=== PATIENT | female | born 1965 | race Caucasian/White ===

== ENCOUNTER 2016-12-19 03:30 | Inpatient (IN) ==
[2016-12-19] MEDS ORDERED: 0.9 % Sodium Chloride 1,000 ML IVC ONE (03:54)
--- NOTE | 2016-12-19 04:25 | Emergency Department Note ---
Disposition Clinical Impression: Ischemic leg Disposition: Admitted As Inpatient Condition: Serious Referrals: Katlyn Spears, COMMERCIAL CONSTRUCTION ESTIMATOR [Primary Care Provider] - Forms: Work/School Release, ED Satisfaction Letter Extremity Problem HPI - General Chief complaint: ED General Medical Stated complaint: "numb from the waist down" Time Seen by Provider: 12/19/16 03:38 Source: patient Limitations: no limitations Nursing Notes Reviewed: Yes Vital Signs Reviewed: Yes - History of Present Illness HPI Narrative: 51-year-old female with a history of insulin-dependent diabetes, peripheral vascular disease status post aortofemoral bypass, previous ischemic colitis, recent exploratory laparotomy at [facility] presents to the emergency department with the chief complaint of lower extremity numbness and weakness. She reports waking up tonight and having numbness from her belly button down. Her legs felt really weak and she could barely stand. She has had an issue like this in the past and she reports needing surgery for arterial bypass at that time. About a month ago she came to the ER with abdominal pain and was diagnosed with ischemic colitis. At that time she was profoundly hypotensive, septic, requiring pressors. She went to [facility] and had exploratory laparotomy but they could not find the source. It does not sound like she had any sort of resection. She is on Xarelto. She is currently being treated for pneumonia which she was diagnosed with a few days ago. Denies any abdominal pain today. Denies any nausea or vomiting. Denies any fevers or chills. Denies any low back pain. Denies any pain in the legs only numbness. Numbness is throughout the legs and not localized to the saddle area. She had a normal urine output just prior to arrival. Pain Scale: 0 - Related Data Home Medications Medication Instructions Recorded Confirmed Atorvastatin [Lipitor] 40 mg PO HS 11/14/16 12/19/16 Cilostazol [Pletal] 100 mg PO BID 11/14/16 12/19/16 Cyanocobalamin (Vitamin B-12) 2,000 mcg PO DAILY 11/14/16 12/19/16 [Vitamin B-12] Gabapentin [Neurontin] 600 mg PO TID 11/14/16 12/19/16 Insulin DETEMIR [Levemir] 50 unit SQ BID 11/14/16 12/19/16 Liraglutide [Victoza 2-Davy] 1.2 mg SQ DAILY 11/14/16 12/19/16 Lisinopril/Hydrochlorothiazide 1 each PO DAILY 11/14/16 12/19/16 [Zestoretic 20-25 mg Tablet] [place]-3/Dha/Epa/Fish Oil [Fish Oil 1 each PO DAILY 11/14/16 12/19/16 1,000 mg Softgel] Pantoprazole Sodium [Protonix] 20 mg PO DAILY 11/14/16 12/19/16 Rivaroxaban [Xarelto] 10 mg PO DAILY 11/14/16 12/19/16 Tramadol HCl [Ultram] 50 mg PO QID 11/14/16 12/19/16 Docusate Sodium [Dok] 100 mg PO BID 12/19/16 12/19/16 Promethazine [Phenergan] 25 mg PO Q6HR 12/19/16 12/19/16 Allergies Allergy/AdvReac Type Severity Reaction Status Date / Time acetaminophen [From Percocet] Allergy Anaphylaxis Verified 12/19/16 07:10 Oxycodone [From Percocet] Allergy Anaphylaxis Verified 12/19/16 07:10 All systems ED: reviewed and negative except as stated. Constitutional: Denies: fever, chills Cardiovascular: Denies: chest pain Respiratory: Denies: cough, dyspnea Gastrointestinal: Denies: abdominal pain, nausea, vomiting, diarrhea Musculoskeletal: Denies: back pain Neurological: Reports: weakness, numbness. Denies: headache Past Medical History - Past Medical History Medical history: Reports: diabetes, hyperlipidemia, hypertension, renal disease , other Psychiatric history: Reports: no psych history - Social History Smoking Status: Current every day smoker Smokeless Tobacco Status: No Alcohol use: Reports: none Drug use: Reports: none Physical Exam General: Patient is resting comfortably in bed in no distress, she is talkative and appropriate Cardiovascular: Regular rate and rhythm. S1, S2. No murmurs, rubs or gallops. Respiratory: Breath sounds clear bilaterally. No wheezing, rales or rhonchi. No resp distress Abdomen: Abdomen is soft without any guarding, rebound or rigidity. She has a large laparotomy scar that is well healing without signs of infection. The abdomen is slightly distended but nontender throughout. No palpable organomegaly. Normal bowel sounds. Eyes: No scleral icterus, conjunctiva clear HENT: No oral mucosal lesions. Moist mucous membranes Neuro: Diminished sensation in the lower extremities both laterally and medial. It does not localize to the saddle area. She is able to lift both legs off the bed but they drifted to the ground. Vascular: I cannot manually palpate pulses in the DP, PT bilaterally. Her feet are symmetrically cold but not purple and mottled. Musculoskeletal: With palpation of the musculature in the lower extremities she has no pain elicited. Muscles are soft. Skin: No lesions. No diaphoresis. Normal turgor. Normal color Psych: Appropriate - General Limitations: no limitations General appearance: alert, in no apparent distress Course Course Narrative: Presented to the emergency department with a chief complaint of leg weakness and numbness. I could not palpate pulses on initial exam and the limbs were cold but not discolored or mottled. She has a known history of aortobifemoral graft in 2012. We immediately ordered an ALVIN. ALVIN showed a significantly diminished index at 0.24 on the right and 0.20 on the left. She had an ALVIN in April 2016 which showed an index of 1.09 on the right and 1.12 on the left. I immediately paged the vascular surgeon She was recently in the hospital with ischemic versus inflammatory colitis and at that time she was septic, hypotensive and on pressors. She was transferred to [facility] where she had an exploratory laparotomy. Patient denies any bowel resection at that time and reports that with fluid hydration her circulation improved. When looking at her old records from most recent creatinine was 3.8 and I doubted patient would be able to tolerate IV contrast so a CT scan of her abdomen without contrast was initially performed. This showed resolution of the inflammatory changes back in October. It showed some flattening of the graft to the right lower extremity compared to prior. Her labs did return and her renal function had improved drastically with a creatinine of 1.16 and a GFR of 50. After speaking with the vascular surgeon we will aggressively hydrate the patient and get an emergent CT aortogram with runoff. It is likely the patient will go to the operating room for endovascular intervention. Heparinization recommended by vascular surgery. - Reevaluation(s) Reevaluation #1: I spoke with the on-call vascular surgeon Dr. Kauffman who recommends emergent aortogram with runoff and he is coming into the hospital as we speak to evaluate the patient. He recommends heparinization and understands she's on Xarelto. Time: 06:16 Reevaluation #2: Vascular surgeon is present, patient will be going to the operating room Time: 07:04 Vital Signs Temperature 97.7 F 12/19/16 03:32 Pulse Rate 107 12/19/16 03:32 Respiratory Rate 18 12/19/16 03:32 Blood Pressure 96/61 12/19/16 03:32 O2 Sat by Pulse Oximetry 96 12/19/16 03:32 Temperature 97.7 F 12/19/16 03:32 Pulse Rate 98 12/19/16 06:55 Respiratory Rate 16 12/19/16 06:55 Blood Pressure 119/62 12/19/16 06:55 O2 Sat by Pulse Oximetry 98 12/19/16 06:55 Oxygen Delivery Oxygen Delivery Room Air Extremity Problem, Nontraumati - Lab Data Result diagrams: 12/19/16 04:40 12/19/16 04:40 Lab Results 12/19/16 12/19/16 12/19/16 Range/Units 04:40 04:40 04:40 WBC 14.2 H (4.3-11.1) K/mcL RBC 4.33 (3.82-4.97) M/mcL Hgb 11.8 (11.5-15.4) g/dL Hct 38.1 (35.3-44.9) % MCV 88.0 (83.0-100.0) fL MCH 27.3 L (28.0-33.3) pg MCHC 31.0 L (31.6-35.5) g/dL RDW 16.2 H (11.5-14.5) % Plt Count 288 (140-400) K/mcL MPV 10.1 (9.4-12.4) fL Seg Neutrophils % 66.0 % Band Neutrophils % 8.0 H (0-4) % Lymphocytes % 14.0 % Monocytes % 12.0 % Neutrophils # 10.5 H (1.6-8.9) K/mcL Lymphocytes # 2.0 (0.6-4.6) K/mcL Monocytes # 1.7 H (0.0-1.3) K/mcL Nucleated RBCs/100 WBC 0.1 H (0) /100 WBC Hypersegmented Neuts Present A (Not Present) Reactive Lymphocytes Present A (Not Present) Toxic Granulation Present A (Not Present) Large Platelets Present A (Not Present) PT 13.3 H (9.4-12.1) Seconds INR 1.2 APTT 23.2 L (26.0-36.0) Seconds Sodium 137 (136-145) mEq/L Potassium 4.0 (3.5-4.5) mEq/L Chloride 98 (98-109) mEq/L Carbon Dioxide 29 (19-29) mEq/L BUN 28 H (7-20) mg/dL Creatinine 1.14 H (0.57-1.11) mg/dL Est GFR ( Amer) > 60 (> 60) Est GFR (Non-Af Amer) 50 L (> 60) BUN/Creatinine Ratio 25 (6-26) Glucose 122 H (70-99) mg/dL Calculated Osmolality 291 (280-300) Lactic Acid (0.5-2.2) mmol/L Calcium 10.2 (8.6-10.8) mg/dL Total Bilirubin 0.4 (0.2-1.2) mg/dL Direct Bilirubin 0.2 (0.0-0.5) mg/dL Indirect Bilirubin 0.2 (0.0-1.2) mg/dL AST 58 H (5-34) Units/L ALT 140 H (0-55) Units/L Alkaline Phosphatase 174 H (38-126) Units/L Serum Total Protein 7.7 (6.0-8.3) g/dL Albumin 3.1 L (3.5-5.0) g/dL Globulin 4.6 H (2.4-3.5) g/dL Albumin/Globulin Ratio 0.7 L (1.1-2.2) 12/19/16 Range/Units 04:40 WBC (4.3-11.1) K/mcL RBC (3.82-4.97) M/mcL Hgb (11.5-15.4) g/dL Hct (35.3-44.9) % MCV (83.0-100.0) fL MCH (28.0-33.3) pg MCHC (31.6-35.5) g/dL RDW (11.5-14.5) % Plt Count (140-400) K/mcL MPV (9.4-12.4) fL Seg Neutrophils % % Band Neutrophils % (0-4) % Lymphocytes % % Monocytes % % Neutrophils # (1.6-8.9) K/mcL Lymphocytes # (0.6-4.6) K/mcL Monocytes # (0.0-1.3) K/mcL Nucleated RBCs/100 WBC (0) /100 WBC Hypersegmented Neuts (Not Present) Reactive Lymphocytes (Not Present) Toxic Granulation (Not Present) Large Platelets (Not Present) PT (9.4-12.1) Seconds INR APTT (26.0-36.0) Seconds Sodium (136-145) mEq/L Potassium (3.5-4.5) mEq/L Chloride (98-109) mEq/L Carbon Dioxide (19-29) mEq/L BUN (7-20) mg/dL Creatinine (0.57-1.11) mg/dL Est GFR ( Amer) (> 60) Est GFR (Non-Af Amer) (> 60) BUN/Creatinine Ratio (6-26) Glucose (70-99) mg/dL Calculated Osmolality (280-300) Lactic Acid 2.2 (0.5-2.2) mmol/L Calcium (8.6-10.8) mg/dL Total Bilirubin (0.2-1.2) mg/dL Direct Bilirubin (0.0-0.5) mg/dL Indirect Bilirubin (0.0-1.2) mg/dL AST (5-34) Units/L ALT (0-55) Units/L Alkaline Phosphatase (38-126) Units/L Serum Total Protein (6.0-8.3) g/dL Albumin (3.5-5.0) g/dL Globulin (2.4-3.5) g/dL Albumin/Globulin Ratio (1.1-2.2) Critical Care Time Critical Care Time: Yes Total Critical Care Time: 45 Attestation: Critical care performed: Time is exclusive of separately billable procedures. Time includes: direct patient care, patient reassessment, coordination of patient care, interpretation of data (laboratory data, radiology data, and respiratory data), review of patient's medical records, medical consultation and documentation of patient care. Procedures included in critical care time: Procedures excluded from critical care time: Attestation Statement - Attestation Attestation: IHugo MD, personally performed a history and physical exam of the patient and discussed their management with the resident. I reviewed the resident's note and agree with the documented findings, medical decision making , and plan of care. 51-year-old female presents to the emergency department with complaints that she awoke tonight with numbness and tingling sensation from her waist down and both lower extremities. It seems slightly worse on the left. Patient has a history of severe peripheral vascular disease and has had an aortofemoral bypass in the past. She states that usually she has similar symptoms of numbness and weakness in her lower extremities whenever she develops a circulation problem. She had a similar episode within the past few months and was transferred to [facility] for ischemic colitis. She did have surgery at [facility] but states that they did not have to resect any of her bowel. She reports that the bowel was very white on initial evaluation that they just left her abdomen open for a day and her symptoms resolved. She denies any pain in the lower extremities. She states they just feel very weak and numb. No lower back pain. No abdominal pain. On examination patient is a well-developed well-nourished female in no acute distress. She is alert and oriented 3. There is no cyanosis or diaphoresis. Breath sounds are equal bilaterally. Heart regular rate and rhythm. Abdomen is soft and nontender with normal bowel sounds. The lower extremities are pale and cool to touch bilaterally. Questionable pulses in the feet bilaterally however they are extremely weak if present. ALVIN obtained. Labs reviewed. Dr. Enriquez discussed the case with the vascular surgeon, Dr. Kauffman, and he requested an aortogram with runoff and will see the patient in the emergency department. Patient was placed on a heparin infusion. At shift change the [facility], Dr. White.
[2016-12-19 04:55] LABS: Hematocrit 38.1 % (35.3-44.9); Hemoglobin 11.8 g/dL (11.5-15.4); Mean Corpuscular Hemoglobin 27.3 pg (28.0-33.3); Mean Platelet Volume 10.1 fL (9.4-12.4); Nucleated Red Blood Cells 0.1 /100 WBC (0); Platelet Count 288 K/mcL (140-400); Red Blood Count 4.33 M/mcL (3.82-4.97); Red Cell Distribution Width 16.2 % (11.5-14.5)
[2016-12-19 04:58] LABS: INR 1.2; Prothrombin Time 13.3 Seconds (9.4-12.1)
[2016-12-19 05:01] LABS: Activated Partial Thrombo Time 23.2 Seconds (26.0-36.0)
[2016-12-19 05:10] LABS: Alanine Aminotransferase 140 Units/L (0-55); Albumin 3.1 g/dL (3.5-5.0); Albumin/Globulin Ratio 0.7 (1.1-2.2); Alkaline Phosphatase 174 Units/L (38-126); Aspartate Amino Transferase 58 Units/L (5-34); BUN/Creatinine Ratio 25 (6-26); Bilirubin,Direct 0.2 mg/dL (0.0-0.5); Bilirubin,Indirect 0.2 mg/dL (0.0-1.2); Bilirubin,Total 0.4 mg/dL (0.2-1.2); Blood Urea Nitrogen 28 mg/dL (7-20); Calcium 10.2 mg/dL (8.6-10.8); Carbon Dioxide 29 mEq/L (19-29); Chloride 98 mEq/L (98-109); Globulin 4.6 g/dL (2.4-3.5); Glucose 122 mg/dL (70-99); Osmolality,Calculated 291 (280-300); Sodium 137 mEq/L (136-145); Total Protein 7.7 g/dL (6.0-8.3); eGFR For African Americans > 60 (> 60); eGFR For Non-African Americans 50 (> 60)
[2016-12-19 05:14] LABS: Monocytes # 1.7 K/mcL (0.0-1.3); Neutrophils # 10.5 K/mcL (1.6-8.9)
[2016-12-19 05:15] LABS: Hypersegmented Neutrophils Present (Not Present); Large Platelets Present (Not Present); Toxic Granulation Present (Not Present)
[2016-12-19 05:16] LABS: Reactive Lymphocytes Present (Not Present)
[2016-12-19] MEDS ORDERED: *HR* Morphine 2 MG/ML SYRINGE IV ONE ×2 (05:20→06:55)
[2016-12-19] MEDS ORDERED: *HR* Heparin 5,000 UNIT/ML VIAL IVP PRN ×4 (06:15→12:37)
[2016-12-19] MEDS ORDERED: Heparin 25,000 UNIT/500 ML D5W 25,000 UNIT/500 ML MLS IVC SCH ×2 (06:15→12:37)
[2016-12-19] MEDS ORDERED: *HR* Heparin 5,000 UNIT/ML VIAL IVP ONE (06:15)
[2016-12-19] MEDS ORDERED: 0.9 % Sodium Chloride 1,000 ML IV ONE (06:18)
--- NOTE | 2016-12-19 07:14 | Vascular/Endovascular H&P ---
Date of Encounter: 12/19/16 Time of Encounter: 07:00 Assessment and Plan (1) Vascular graft occlusion Status: Acute The patient has an occluded aortobifemoral bypass graft. She is in need of emergent graft thrombectomy to prevent limb loss. The risks, benefits and alternatives were discussed and all questions were answered. She expressed understanding and wishes to proceed. Qualifiers: Encounter type: initial encounter Qualified Code(s): T82.898A - Other specified complication of vascular prosthetic devices, implants and grafts, initial encounter (2) Hypercoagulable state Status: Chronic (3) Tobacco abuse disorder Status: Chronic (4) Type 2 diabetes mellitus with insulin therapy Status: Chronic (5) Pulmonary embolus, right Status: Chronic The patient was noted to have a right lower lobe pulmonary embolus on CT scan. She has minimal pleuritic chest pain and is not experiencing shortness of breath or symptoms of hypoxia. She will remain anticoagulated. History of Present Illness Chief complaint: Painful, cool, bilateral lower extremities HPI: Ms. Santillan is a 51 year old female with a history of peripheral vascular disease with disabling claudication who previously underwent an aortobifemoral bypass. She reports that she developed limb pain at 11pm last night and noticed that her legs were cool. She presented to the ER this morning and was found to have severely diminished ABIs. Vascular Surgery was then consulted. The patient underent a CTA and was found to have an occcluded aortobifemoral bypass. She reports that her graft has required thrombectomy in the past and she is chronically treated with Xarelto. She denies any chest pain, shortness of breath or palpitations. Past Med Surg Social Fam HX - Past Medical History Medical history: diabetes, hyperlipidemia, hypertension, renal disease, other Psychiatric history: no psych history - Past Surgical History Surgical History: other (right renal stent known to be occluded), LE bypass ( aortobifemoral bypass with multiple graft thrombectomies) - Social History Smoking Status: Current every day smoker Smokeless Tobacco Status: No Alcohol use: none Drug use: none Medications and Allergies Atorvastatin [Lipitor] 40 mg PO HS 11/14/16 [History] Cilostazol [Pletal] 100 mg PO BID 11/14/16 [History] Cyanocobalamin (Vitamin B-12) [Vitamin B-12] 2,000 mcg PO DAILY 11/14/16 [ History] Gabapentin [Neurontin] 600 mg PO TID 11/14/16 [History] Insulin DETEMIR [Levemir] 50 unit SQ BID 11/14/16 [History] Liraglutide [Victoza 2-Davy] 1.2 mg SQ DAILY 11/14/16 [History] Lisinopril/Hydrochlorothiazide [Zestoretic 20-25 mg Tablet] 1 each PO DAILY [History] [place]-3/Dha/Epa/Fish Oil [Fish Oil 1,000 mg Softgel] 1 each PO DAILY 11/14/16 [ History] Pantoprazole Sodium [Protonix] 20 mg PO DAILY 11/14/16 [History] Tramadol HCl [Ultram] 50 mg PO QID 11/14/16 [History] Docusate Sodium [Dok] 100 mg PO BID 12/19/16 [History] Promethazine [Phenergan] 25 mg PO Q6HR 12/19/16 [History] HYDROcodone/Acet 5/325 mg [[place] 5-325 mg] 1 tab PO Q4H PRN #36 tablet 12/20/16 [Rx] Rivaroxaban [Xarelto] 20 mg PO DAILY #30 tablet 12/20/16 [Rx] Allergies acetaminophen [From Percocet] Allergy (Verified 12/19/16 07:10) Anaphylaxis Oxycodone [From Percocet] Allergy (Verified 12/19/16 07:10) Anaphylaxis All Systems Review: A 10-system review of systems was performed and is negative for pertinent findings except as documented above in the HPI. - Constitutional Constitutional: no chills, no fever(s) - Cardiovascular Cardiovascular: no chest pain at rest, no chest pain with exertion, no dyspnea at rest, no dyspnea on exertion Exam Vital Signs, Last 4 Hours Temp Pulse Resp BP Pulse Ox 12/19/16 06:55 98 16 119/62 98 12/19/16 06:02 96 16 115/72 99 12/19/16 03:45 97 16 103/58 100 12/19/16 03:32 97.7 F 107 18 96/61 96 General: Present: Conversant, No Apparent Distress HEENT: Present: Atraumatic, Trachea midline, Pupils equal Neck: Absent: JVD, Left Carotid bruit, Right Carotid bruit Cardiac: Present: Reg Rate and Rhythm, Normal S1 and S2, No Murmur Lungs: Present: Normal Breath Sounds, No Wheeze, Rales, Rhonchi Neuro: Present: Alert and responsive, No focal deficits noted, Motor nerves grossly intact, Sensory nerves grossly intact Abdomen: Present: Soft, Non-tender, Masses Vascular: Present: Capillary refill delayed (bilaterally), Pulse, absent ( femoral, popliteal and pedals absent bilaterally). Absent: Edema Results 12/20/16 01:28 12/20/16 01:28 Lab Results, Last 24 hours 12/19/16 12/19/16 12/19/16 04:40 04:40 04:40 WBC 14.2 H Hgb 11.8 Hct 38.1 Plt Count 288 INR 1.2 APTT 23.2 L Sodium 137 Potassium 4.0 Chloride 98 Carbon Dioxide 29 BUN 28 H Creatinine 1.14 H Glucose 122 H Calcium 10.2 Total Bilirubin 0.4 AST 58 H ALT 140 H Alkaline Phosphatase 174 H - Imaging / Other Tests CT/CTA: report reviewed, image reviewed (Occcluded aortobifemoral bypass below the left renal artery, right renal artery occluded, right renal artery stent occluded)
--- NOTE | 2016-12-19 07:33 | Anesthesia Evaluation PreOp ---
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: Other (numbness and weakness of bilateral legs (Due to vascular occlusion)) Other Medical History: Renal (patient with only one kidney (occurred after complication from R renal artery stent)), Diabetes Type II Anesthesia History: No Prior Anesthetic Complications Alcohol Use: none Drug use: none Medications and Allergies Atorvastatin [Lipitor] 40 mg PO HS 11/14/16 [History] Cilostazol [Pletal] 100 mg PO BID 11/14/16 [History] Cyanocobalamin (Vitamin B-12) [Vitamin B-12] 2,000 mcg PO DAILY 11/14/16 [ History] Gabapentin [Neurontin] 600 mg PO TID 11/14/16 [History] Insulin DETEMIR [Levemir] 50 unit SQ BID 11/14/16 [History] Liraglutide [Victoza 2-Davy] 1.2 mg SQ DAILY 11/14/16 [History] Lisinopril/Hydrochlorothiazide [Zestoretic 20-25 mg Tablet] 1 each PO DAILY [History] [place]-3/Dha/Epa/Fish Oil [Fish Oil 1,000 mg Softgel] 1 each PO DAILY 11/14/16 [ History] Pantoprazole Sodium [Protonix] 20 mg PO DAILY 11/14/16 [History] Rivaroxaban [Xarelto] 10 mg PO DAILY 11/14/16 [History] Tramadol HCl [Ultram] 50 mg PO QID 11/14/16 [History] Docusate Sodium [Dok] 100 mg PO BID 12/19/16 [History] Promethazine [Phenergan] 25 mg PO Q6HR 12/19/16 [History] Allergies acetaminophen [From Percocet] Allergy (Verified 12/19/16 07:10) Anaphylaxis Oxycodone [From Percocet] Allergy (Verified 12/19/16 07:10) Anaphylaxis - Meds/Allergy Pre-op Review Medications Reviewed: Yes Allergies Reviewed: Yes Beta Blockers on Current Med List: No Anesthesia Results - Labs 12/19/16 04:40 12/19/16 04:40 - Imaging EKG: report reviewed, image reviewed (SR; normal) Anesthesia Exam Last Vital Signs Temp 97.7 F 12/19/16 03:32 Pulse 98 12/19/16 06:55 Resp 16 12/19/16 07:24 BP 119/62 12/19/16 07:24 Pulse Ox 98 12/19/16 06:55 Weight: 77 kg NPO (# of Hours): >> 8 hrs - HEENT Pupil (Motor): Pupils equal, EOMI Mallampati: II Teeth: Poor dentition Oral Opening: Greater than 3 - 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
[2016-12-19] MEDS ORDERED: *HR* Etomidate 40 MG/20 ML VIAL IVP ONE (08:41)
[2016-12-19] MEDS ORDERED: *HR* Rocuronium Bromide 50 MG/5 ML VIAL ONE ×4 (08:44→10:26)
[2016-12-19] MEDS ORDERED: Vancomycin 1,000 MG VIAL ONE (08:45)
[2016-12-19] MEDS ORDERED: Heparin 1,000 UNITS/500 mL NS 500 ML ONE (09:34)
--- NOTE | 2016-12-19 10:14 | Anesthesia Procedures ---
Date of Encounter: 12/19/16 Time of Encounter: 08:45 Procedures: Anesthesia - Arterial Line Consent obtained: written consent (together with anesthesia consent) Time out performed: Yes Sedation: Versed (mg): 2 Sedation: Fentanyl (mcg): 100 Supplemental Oxygen via Nasal Cannula (L/min): 3 Local Anesthetic: Lidocaine 1% Amount of Anesthetic used (mls): 1 Size (Gauge): 20 Length (inches): 5 Technique Used: sterile prep, guide wire technique Post-Procedure: line taped into place Patient tolerated procedure: well Complications: none Site: Brachial R Vitals: see anesthesia record Comments: attempted to place [place] in preop holding. multiple attempts by multiple providers unsuccessful at threading guidwire after obtaining pulsatile flow each time in each upper extremity (with ultrasound). Aborted attempts at having a-line placed prior to induction due to emergent nature of case. Dr. Gomes successfully placed RUE [place] a-line immediately after induction in OR.
[2016-12-19] MEDS ORDERED: *HR* Promethazine 25 MG/ML VIAL IVP PRN (10:18)
[2016-12-19] MEDS ORDERED: *HR* Labetalol 20 MG/4 ML SYRINGE IVP PRN ×2 (10:18→12:37)
[2016-12-19] MEDS ORDERED: Ondansetron 4 MG/2 ML VIAL IVP ONE (10:18)
[2016-12-19] MEDS ORDERED: Dexamethasone 4 MG/ML VIAL IVP ONE (10:18)
[2016-12-19] MEDS ORDERED: Ondansetron 4 MG/2 ML VIAL ONE ×2 (10:26→10:52)
[2016-12-19] MEDS ORDERED: *HR* Remifentanil 2 MG VIAL IVP ONE (10:26)
[2016-12-19] MEDS ORDERED: *HR* Midazolam HCl 2 MG/2 ML VIAL ONE (10:26)
[2016-12-19] MEDS ORDERED: Lidocaine -MPF 2% 2 ML VIAL ONE (10:26)
[2016-12-19] MEDS ORDERED: *HR* FentaNYL (PF) 100 MCG/2 ML VIAL ONE (10:26)
[2016-12-19] MEDS ORDERED: Lidocaine -MPF 4% 5 ML AMPUL ONE (10:26)
[2016-12-19] MEDS ORDERED: *HR* Heparin 5,000 UNIT/ML VIAL ONE (10:26)
[2016-12-19] MEDS ORDERED: *HR* Phenylephrine 10 MG/ML VIAL ONE (10:26)
[2016-12-19] MEDS ORDERED: Dexamethasone 4 MG/ML VIAL ONE ×2 (10:26→10:52)
[2016-12-19] MEDS ORDERED: Neostigmine Methylsulfate 3 MG/3 ML SYRINGE ONE (10:48)
[2016-12-19] MEDS ORDERED: Esmolol 100 MG/10 ML VIAL IVP ONE (11:29)
[2016-12-19] MEDS: *HR* HYDROmorphone (PF) 1 MG/ML SYRINGE IVP PRN ×5 (11:43→12:45)
--- NOTE | 2016-12-19 12:02 | Operative Note ---
Date of procedure: 12/19/16 Pre-op diagnosis: Acute bilateral lower extremity ischemia Post-op diagnosis: same Procedure: Aortobifemoral and bilateral lower extremity thrombectomy with 5 and 6 israeli kiara embolectomy catheters. Complications: None Anesthesia: ALFREDOA Surgeon: Paulie Kauffman Community Board Member: Sami Redd Estimated blood loss (cc): 500 Specimen: thrombus Condition: stable Disposition: PACU Procedure in Detail: Indications: The patient is a 51 year old female with a history of hypercoagulable state, chronic kidney disease and peripheral vascular disease who previously underwent an aortobifemoral bypass graft. She presented to the emergency room with pain, parastheias and pulseless lower extremities. She was found to have critical ankle brachial indicies bilaterally and a CT scan revealed occlusion of her aortibifemoral bypass graft. Emergent revascularization was necessary for limb salvage. Procedure: The patient was identified in the preoperative area. The risks, benefits and alternatives were discussed and all questions were answered. The patient was taken to the operating room and placed in the supine position on the operating room table. After the induction of general endotracheal anesthesia, the patient was cleaned and draped in the normal sterile fashion. An oblique incision was made over the bilateral femoral vessels sharply. Hemostasis was obtained with electrocautery. Through a process of blunt, sharp and electrocautery dissection, the common, deep and superficial femoral arteries were dissected and surrounded with vessel loops. The graft limbs were also dissected circumferentially bilaterally and surrounded with vessel loops. The patient received a bolus of heparin and the vessels and graft were occluded . A graftomy was made through each limb of the bypass. No flow was noted on release of the proximal loops. A 5 israeli kiara catheter was passed into the aorta and inflated through each limb of the graft. After the balloon was withdrawn, significant acute thrombus and chronic embolic material was retrieved bilaterally. The specimens were sent to pathology. Brisk pulsatile flow was noted proximally at this time. Additional passes of the catheter were made with a 5 israeli and 6 israeli catheter and more thrombus was retrieved. Passages of the catherers were continued until they resulted in no additional thrombus or embolus retrieved. No signifcant thrombus was retireved on distal passage of the 5 israeli kiara catheters. Significant retrograde flow was noted from the deep femoral and superficial femoral arteries. The vessels were flushed with heparin. The graftotomies were reapproximated with 6-0 Prolene. Flow was restored through the graft and hoopa vessels. Polyphasic signals were identified in the deep and superficial femoral arteries. The wounds were irrigated with antibiotic containing saline. Hemostasis was obtained with electrocautery. The wounds were reapproximated with 2-0 and 3-0 vicryl. Skin was reapproximated with 3-0 Monocryl. Sterile dressings were applied. The patient was extubated and taken to the recover room in stable condition.
[2016-12-19] MEDS ORDERED: Ringers Solution, Lactated 1,000 ML ONE (12:07)
[2016-12-19] MEDS ORDERED: Dextrose Gel 15 GM PO PRN ×2 (12:37)
[2016-12-19] MEDS ORDERED: D5% in Water 1,000 ML IV PRN (12:37)
[2016-12-19] MEDS ORDERED: Ondansetron 4 MG/2 ML VIAL IVP PRN (12:37)
[2016-12-19] MEDS ORDERED: 0.9 % Sodium Chloride 2,000 ML IVC SCH (12:37)
[2016-12-19] MEDS ORDERED: Acetaminophen 325 MG TABLET PO PRN (12:37)
[2016-12-19] MEDS ORDERED: Naloxone 0.4 MG/ML INJ IVP PRN (12:37)
[2016-12-19] MEDS ORDERED: *HR* Dextrose 50 % in Water (Syg) 50 ML SYRINGE IVP PRN (12:37)
[2016-12-19] MEDS: 0.9 % Sodium Chloride 500 ML ONE ×2 (13:17→13:47)
[2016-12-19] MEDS ORDERED: *HR* Morphine 2 MG/ML SYRINGE ONE (13:19)
[2016-12-19] MEDS: *HR* Morphine 2 MG/ML SYRINGE IVP PRN ×6 (13:23→21:13)
[2016-12-19] MEDS: *HR* Metoprolol 5 MG/5 ML VIAL IVP SCH ×3 (13:40→23:40)
[2016-12-19] MEDS: *HR* HYDROcodone/Acet 7.5/325 mg TABLET PO PRN ×2 (13:44→19:33)
[2016-12-19] MEDS ORDERED: *HR* HYDROmorphone (PF) 1 MG/ML SYRINGE IVP ONE (13:59)
[2016-12-19] MEDS ORDERED: *HR* HYDROmorphone (PF) 1 MG/ML SYRINGE ONE (14:05)
[2016-12-19 14:33] LABS: Hematocrit 28.7 % (35.3-44.9); Mean Corpuscular HGB Conc 32.1 g/dL (31.6-35.5); Mean Corpuscular Hemoglobin 28.5 pg (28.0-33.3); Mean Corpuscular Volume 88.9 fL (83.0-100.0); Mean Platelet Volume 10.5 fL (9.4-12.4); Platelet Count 211 K/mcL (140-400); Red Blood Count 3.23 M/mcL (3.82-4.97)
[2016-12-19 14:34] LABS: Hemoglobin 9.2 g/dL (11.5-15.4)
[2016-12-19] MEDS: Gabapentin 300 MG CAPSULE PO SCH ×2 (14:50→21:12)
[2016-12-19] MEDS: ceFAZolin 2,000 MG in D5% in Water 100 ML IVPB SCH ×2 (14:59→23:41)
[2016-12-19] MEDS ORDERED: Heparin 1,000 UNITS/500 mL NS 1,000 ML ONE (15:07)
[2016-12-19] MEDS ORDERED: Argatroban 250 MG in D5% in Water 250 ML IVC SCH (15:15)
--- NOTE | 2016-12-19 15:55 | Operative Note ---
Date of procedure: 12/19/16 Pre-op diagnosis: Thrombosed aortobifemoral bypass graft with limb threatening ischemia Post-op diagnosis: same Procedure: Thrombectomy of aortobifemoral bypass graft with bilateral femoral exposure and catheter thrombectomy Complications: None Anesthesia: ALFREDOA Surgeon: Paulie Kauffman Co-Surgeon: Sami Redd Estimated blood loss (cc): 500 Specimen: Thrombus Condition: stable Disposition: PACU Procedure in Detail: History The patient is a 51-year-old white female with a history of peripheral vascular occlusive disease. She is status post a aortobifemoral bypass graft. This has been thrombectomized once in the past. At approximately 11 PM last night the patient began to develop lower extremity pain and discomfort. She eventually presented to the emergency room where extremely low ankle brachial indices were identified. Vascular surgery was then consulted and because of this severe ischemia present and she was recommended to undergo emergency surgery for thrombectomy of her aortobifemoral bypass graft. Her past history is also significant for pulmonary emboli, tobacco abuse, and diabetes. Procedure After informed consent was obtained patient was taken to the operating room. The abdomen and groin and upper thighs were sterilely prepped and draped. A timeout protocol was observed. A 2 team approach was used for this procedure. This was utilized in order to minimize anesthetic time and to decrease intraoperative blood loss. His were also aid in complex intraoperative decision making and also to attempt to avoid any complications. An incision was made in each groin and dissection was carried down to expose the graft at the femoral level. Controls obtained of the graft and then a transverse graftotomy was made on each side. Fresh thrombus was encountered which was removed. A 5 and 6 Yi Olayinka catheter was then used and were passed retrograde into the graft limbs. A large amount of fresh clot was removed. Also chronic and subacute material was removed. Excellent pulsatile flow was achieved on both limbs of the graft. The catheter was also passed distally. On the left side the catheter was only able to be passed a distance of about 10-15 cm. Retrograde bleeding was identified and achieved. These areas were flushed both proximally and distally and then the graftotomy was closed with a running 6-0 Prolene suture. After appropriate backbleeding and flushing the graft was open. The patient tolerated this well and had no intraoperative hypotension. The wounds were then irrigated and hemostasis achieved. An excellent palpable pulse was not present and excellent Doppler signals were identified as well and the femoral vessels. The wounds were then closed in layers using absorbable suture. Dry sterile dressings were applied to the incisions. The patient was extubated and taken to the recovery room in stable condition.
--- NOTE | 2016-12-19 15:56 | Anesthesia Evaluation Post Op ---
Date of Encounter: 12/19/16 Time of Encounter: 11:45 - Vital Signs Vital Signs: Last Vital Signs Temp 98.3 F 12/19/16 11:53 Pulse 105 12/19/16 11:53 Resp 16 12/19/16 11:53 BP 162/72 12/19/16 11:53 Pulse Ox 100 12/19/16 11:53 - Lungs Lungs: Clear Ascult./Percussion - Airway Airway: Non-obstructed - Cardiovascular Regular Rate - Mental Status Mental Status: Alert & Oriented, Answers Appropriately - Pain Pain Scale: 2 - Nausea Vomiting Nausea Vomiting: Not Present - Hydration Hydration: Ice chips, Rossi catheter - Discharge PostOp Status: Transfer Patient to floor
[2016-12-19] MEDS: Insulin LISPRO 300 UNITS/3 ML VIAL SQ SCH (16:39)
[2016-12-19 16:50] LABS: Albumin/Globulin Ratio 0.7 (1.1-2.2); Bilirubin,Direct 0.2 mg/dL (0.0-0.5); Bilirubin,Indirect 0.1 mg/dL (0.0-1.2); Bilirubin,Total 0.3 mg/dL (0.2-1.2); Globulin 3.3 g/dL (2.4-3.5); Total Protein 5.5 g/dL (6.0-8.3)
[2016-12-19 16:51] LABS: Albumin 2.2 g/dL (3.5-5.0)
--- NOTE | 2016-12-19 18:23 | Event Note ---
Date of Encounter: 12/19/16 Time of Encounter: 16:00 Patient seen and examined. Her incisions are without hematoma and the bandages are dry. Her feet are warm. Motor and sensory are intact. Pain is well controlled. The patient and her daughter now report that she may have resistance to heparin. She will be started on Argatroban. Patient care plan discussed with the family and her nurse.
[2016-12-19] MEDS ORDERED: Insulin LISPRO 300 UNITS/3 ML VIAL SQ SCH (21:00)
[2016-12-19] MEDS: *HR* HYDROcodone/Acet 5/325 mg TABLET PO PRN (23:40)
[2016-12-20 01:43] LABS: Hematocrit 26.5 % (35.3-44.9); Hemoglobin 8.4 g/dL (11.5-15.4); Mean Corpuscular HGB Conc 31.7 g/dL (31.6-35.5); Mean Corpuscular Hemoglobin 28.6 pg (28.0-33.3); Mean Corpuscular Volume 90.1 fL (83.0-100.0); Mean Platelet Volume 10.3 fL (9.4-12.4); Monocytes # 0.5 K/mcL (0.0-1.3); Platelet Count 195 K/mcL (140-400); Red Blood Count 2.94 M/mcL (3.82-4.97); Red Cell Distribution Width 16.2 % (11.5-14.5)
[2016-12-20 01:56] LABS: BUN/Creatinine Ratio 22 (6-26); Blood Urea Nitrogen 20 mg/dL (7-20); Carbon Dioxide 24 mEq/L (19-29); Chloride 105 mEq/L (98-109); Glucose 168 mg/dL (70-99); Osmolality,Calculated 292 (280-300); Potassium 4.6 mEq/L (3.5-4.5); Sodium 138 mEq/L (136-145); eGFR For African Americans > 60 (> 60); eGFR For Non-African Americans > 60 (> 60)
[2016-12-20 01:59] LABS: Calcium 8.1 mg/dL (8.6-10.8)
[2016-12-20 02:09] LABS: Lymphocytes # 1.8 K/mcL (0.6-4.6); Neutrophils # 5.8 K/mcL (1.6-8.9)
[2016-12-20 02:10] LABS: Hypochromasia Present (Not Present); Platelet Estimate Normal (Normal); Reactive Lymphocytes Present (Not Present)
[2016-12-20] MEDS: *HR* Metoprolol 5 MG/5 ML VIAL IVP SCH (05:13)
[2016-12-20] MEDS ORDERED: *HR* Heparin 5,000 UNIT/ML VIAL SQ SCH (06:00)
[2016-12-20] MEDS: *HR* HYDROcodone/Acet 7.5/325 mg TABLET PO PRN (06:17)
[2016-12-20] MEDS: *HR* Morphine 2 MG/ML SYRINGE IVP PRN (06:22)
--- NOTE | 2016-12-20 07:20 | Arterial Study Report ---
LE Arterial Physiologic Study Patient Name:Maria Dolores Santillan Order Number:[id number] Procedure Date:12/19/2016 Date:1965Age:51 yrs Gender:Female Lt BP:117 / mmHg Rt.BP:123 / mmHgHeart Rate: Location:[facility] ED Room #: ER 5 Assembler Finger Buffs:Adeline Montiel RDCS, ALFREDOT Referring MD:Ector Enriquez DO laundry machine tender:Katlyn Spears, PRESSURE CONTROL SUPERVISOR Reading MD:Paulie Kauffman MD Primary Indications:Bilateral Pain, Tingling and Numbness Risk Factors Yes/No Smoking Current Yes Hypertension Yes Hypercholesterolemia Yes Anticoagulants Yes Previous Vascular Surgery Yes Impressions: The right ALVIN and waveforms are consistent with critical disease. Right ALVIN 0.24. The left ALVIN and waveforms are consistent with critical disease. Left ALVIN 0.20. Recommendations: Further evaluation is recommended. Test completed on 12/19/2016 at 5:35:15 am. Critical findings reported to Dr. Ector Enriquez in person at 5:40:32 am on 12/19/2016 by Adeline Montiel RDCS, RVT. Findings Prior Intervention: The patient has undergone the following procedure: bypass of the aorta bi-fem. LE Arterial Physiologic Exam: PVR: Right: The PVR waveforms are severely diminished in the right ankle. Left: The PVR waveforms are severely diminished in the left ankle. Prior Study: Significant changes noted compared to prior study dated: 04/25/2016. Segmental Pressures Side Location Pressure Index Result Right Posterior Tibial 30 0.24 Right Dorsalis Pedis 23 0.19 Left Posterior Tibial 24 0.20 Left Dorsalis Pedis 23 0.19 Ankle Brachial Index Right Systolic Diastolic ALVIN Brachial 123 0.24 Dorsalis Pedis 23 0.19 Posterior Tibial 30 0.24 Left Systolic Diastolic ALVIN Brachial 117 0.20 Dorsalis Pedis 23 0.19 Posterior Tibial 24 0.20 Updated by Paulie Kauffman MD on 12/20/2016 7:14:31 AM with Status of Final electronically signed on 12/20/2016 7:14:46 AM with status of Final
[2016-12-20 07:22] VITALS: BP 138/77
--- NOTE | 2016-12-20 07:51 | Discharge Summary ---
Date of Encounter: 12/20/16 Time of Encounter: 07:40 - Discharge Diagnosis (1) Vascular graft occlusion Priority: Primary Status: Acute Comments: The patient presented with an aortobifemoral bypass graft occlusion on 12/19/16. She underwent emergent thrombectomy. She is now postoperative day #1. He feet are warm and she is without complaints. She will be discharged today without complications. Qualifiers: Encounter type: initial encounter Qualified Code(s): T82.898A - Other specified complication of vascular prosthetic devices, implants and grafts, initial encounter (2) Hypercoagulable state Priority: Secondary Status: Chronic Comments: The patient is hypercoagulable. Her XArelto will be increased from 10mg daily to 20mg daily. She will follow-up with Dr. Bull in Heme/Onc for further evaluation. (3) Tobacco abuse disorder Priority: Secondary Status: Chronic Comments: The patient was counseled regarding smoking cessation. (4) Type 2 diabetes mellitus with insulin therapy Priority: Secondary Status: Chronic Comments: The patient was counseled regarding atherosclerotic risk factor reduction. (5) Pulmonary embolus, right Priority: Secondary Status: Chronic Comments: The patient was found to have a pulmonary embolus on CT scan. She was asymptomatic at discharge. - Discharge Medications Prescriptions: HYDROcodone/Acet 5/325 mg [[place] 5-325 mg] 1 tab PO Q4H PRN #36 tablet PRN Reason: postoperative pain Rivaroxaban [Xarelto] 20 mg PO DAILY #30 tablet Home Medications: Atorvastatin [Lipitor] 40 mg PO HS 11/14/16 [History] Cilostazol [Pletal] 100 mg PO BID 11/14/16 [History] Cyanocobalamin (Vitamin B-12) [Vitamin B-12] 2,000 mcg PO DAILY 11/14/16 [ History] Gabapentin [Neurontin] 600 mg PO TID 11/14/16 [History] Insulin DETEMIR [Levemir] 50 unit SQ BID 11/14/16 [History] Liraglutide [Victoza 2-Davy] 1.2 mg SQ DAILY 11/14/16 [History] Lisinopril/Hydrochlorothiazide [Zestoretic 20-25 mg Tablet] 1 each PO DAILY [History] Driscoll-3/Dha/Epa/Fish Oil [Fish Oil 1,000 mg Softgel] 1 each PO DAILY 11/14/16 [ History] Pantoprazole Sodium [Protonix] 20 mg PO DAILY 11/14/16 [History] Tramadol HCl [Ultram] 50 mg PO QID 11/14/16 [History] Docusate Sodium [Dok] 100 mg PO BID 12/19/16 [History] Promethazine [Phenergan] 25 mg PO Q6HR 12/19/16 [History] HYDROcodone/Acet 5/325 mg [[place] 5-325 mg] 1 tab PO Q4H PRN #36 tablet 12/20/16 [Rx] Rivaroxaban [Xarelto] 20 mg PO DAILY #30 tablet 12/20/16 [Rx] Allergies/Adverse Reactions: Allergies acetaminophen [From Percocet] Allergy (Verified 12/19/16 07:10) Anaphylaxis Oxycodone [From Percocet] Allergy (Verified 12/19/16 07:10) Anaphylaxis Date of admission: 12/19/16 07:31 Primary care physician: Katlyn Spears CNP Consults: 12/19/16 15:18 Consult to Music Pastor [CONS] Routine Reason for SW Consult: Patient recently lost their insurance coverage. Discharging clinician: Paulie Kauffman Anticipated date of discharge: 12/20/16 - Patient Status Disposition: Home, Self-Care Condition: Serious Functional capacity at discharge: independent ambulation Overall status at discharge: patient is back to baseline - Discharge Instructions Instructions: Hydrocodone/Acetaminophen (By mouth), Rivaroxaban (By mouth), Aortofemoral Bypass (DC) Follow Up With: Mary Bull MD [Partnered Physician] - 12/30/16 1:10 pm Paulie Kauffman MD [Partnered Physician] - 01/29/17 1:50 pm Katlyn Spears CNP [Primary Care Provider] - 12/24/16 3:20 pm - Diet and Activity Activity: increase activity as tolerated Diet: diabetic diet - Hospital Course Hospital course: Ms. Santillan is a 51 year old female with a history of a hypercoagulable state presented to [facility] ED on 12/19/16 with pain and parasthesias in the bilateral lower extremities. She was found to have an aortobifemoral bypass graft occlusion. She was taken to the OR where she underwent graft thrombectomy. In the postoperative perioed she was treated with Argatroban. On postoperative day #1, her symptoms had resolved and she was feeling well. Her incisions were healing. She was discharged on Xarelto 20mg daily instead of her previous dose of 10mg daily. She was advised to follow up with her primary therapist as well as Hematology. She was discharged on postoperative day #1 without complication. - Time Spent with Patient Total time spent providing and/or coordinating discharge services: Exam Vital Signs, Last 4 Hours Temp Pulse Resp BP Pulse Ox 03// 07:17 98.0 F 90 16 138/77 92 L //17 05:00 97.9 F 88 14 123/68 94 L General: Present: Conversant, No Apparent Distress HEENT: Present: Pupils equal Neck: Absent: Tracheal deviation Cardiac: Present: Reg Rate and Rhythm Lungs: Present: Normal Breath Sounds Neuro: Present: Alert and responsive, No focal deficits noted Abdomen: Present: Soft, Non-tender. Absent: Masses Vascular: Present: Normal capillary refill, Surgical incisions (clean, dry and intact withotu erythema or drainage). Absent: Cyanosis, Edema Skin: Present: No rashes noted on visualized skin - VTE Documentation of Mechanical Device: Intermittent pneumatic compression device
[2016-12-20] MEDS ORDERED: *HR* Rivaroxaban 10 MG TABLET PO SCH (07:56)
[2016-12-20] MEDS: Insulin LISPRO 300 UNITS/3 ML VIAL SQ SCH (08:17)
[2016-12-20] MEDS: Gabapentin 300 MG CAPSULE PO SCH (08:22)
[2016-12-20] MEDS ORDERED: (Omega-3/Dha/Epa/Fish Oil [Fish Oil 1,000 Mg Softgel] PO SCH (09:00)
[2016-12-20] MEDS ORDERED: Cyanocobalamin (B-12) 1,000 MCG TABLET PO SCH (09:00)
[2016-12-20] MEDS: *HR* HYDROcodone/Acet 5/325 mg TABLET PO PRN (10:01)
== END 2016-12-20 11:41 | disposition home or self-care (01) | DRG 270 ==
LOC: EMEROO 03:30 → 2NNU 07:31
PROVIDERS: ADMIT Surgery; ATTEND Surgery

== ENCOUNTER 2018-02-17 12:25 | Inpatient (IN) ==
[2018-02-17] MEDS ORDERED: 0.9 % Sodium Chloride 1,000 ML IVC ONE (13:03)
--- NOTE | 2018-02-17 13:04 | Emergency Department Note ---
Disposition Clinical Impression: Diabetes Qualifiers: Diabetes mellitus type: other specified (including PEARL) Diabetes mellitus detention insulin use: with terminal manager use Diabetes mellitus complication status : with hyperglycemia Qualified Code(s): E13.65 - Other specified diabetes mellitus with hyperglycemia Disposition: Admitted As Inpatient Condition: Serious Referrals: Katlyn Spears CNP [Primary Care Provider] - Forms: ED Satisfaction Letter, Work/School Release Time of Disposition: 14:32 General Adult HPI - General Chief complaint: ED General Medical Stated complaint: High Glucose,right foot injury Time Seen by Provider: 02/17/18 12:44 Source: patient, family Mode of arrival: wheelchair Nursing Notes Reviewed: Yes Vital Signs Reviewed: Yes - History of Present Illness HPI Narrative: 52-year-old diabetic who says she has not been able take her insulin for several weeks due to it causing her nausea comes in with elevated blood glucose and apparently twisted her ankle last night chest pain in the right ankle and foot. To have a blood pressure of 84, looks dehydrated. Pt Subjective Complaint: Elevated blood glucose Onset (ago): week(s) Location: right, lower extremity Radiation: non-radiation Pain Severity: severe Pain Scale: 9 Quality: aching Consistency: constant Improves with: nothing Worsens with: movement, other (Ambulation) Associated symptoms: Denies: confusion, chest pain - Related Data Home Medications Medication Instructions Recorded Confirmed Atorvastatin [Lipitor] 40 mg PO HS 11/14/16 02/17/18 Cilostazol [Pletal] 100 mg PO BID 11/14/16 02/17/18 Cyanocobalamin (Vitamin B-12) 2,000 mcg PO DAILY 11/14/16 02/17/18 [Vitamin B-12] Gabapentin [Neurontin] 600 mg PO TID 11/14/16 02/17/18 Lisinopril/Hydrochlorothiazide 1 each PO DAILY 11/14/16 02/17/18 [Zestoretic 20-25 mg Tablet] Pantoprazole Sodium [Protonix] 20 mg PO DAILY 11/14/16 02/17/18 Tramadol HCl [Ultram] 50 mg PO QID 11/14/16 02/17/18 Docusate Sodium [Dok] 100 mg PO BID 12/19/16 02/17/18 Aspirin [Lo-Dose Aspirin EC] 81 mg PO DAILY 02/17/18 02/17/18 BuPROPion [Wellbutrin] 100 mg PO DAILY 02/17/18 02/17/18 Cholecalciferol (D-3) [Vitamin D] 1,000 unit PO DAILY 02/17/18 02/17/18 Clopidogrel [Plavix] 75 mg PO DAILY 02/17/18 02/17/18 Folic Acid 1 mg PO DAILY 02/17/18 02/17/18 Previous Rx's Medication Instructions Recorded Rivaroxaban [Xarelto] 20 mg PO DAILY #30 tablet 12/20/16 Albuterol Sulfate [Albuterol 2 puff IH Q6HR PRN #1 hfa.aer.ad 09/17/17 Inhaler] Allergies Allergy/AdvReac Type Severity Reaction Status Date / Time acetaminophen [From Percocet] Allergy Anaphylaxis Verified 12/19/16 07:10 Oxycodone [From Percocet] Allergy Anaphylaxis Verified 12/19/16 07:10 All systems ED: reviewed and negative except as stated. Constitutional: Denies: fever, chills, weakness, weight change Eyes: Denies: eye pain, eye discharge, vision change ENT ED: Denies: ear pain, throat pain, dental pain, hearing loss, epistaxis, congestion, dysphagia Cardiovascular: Denies: chest pain, palpitations, dyspnea on exertion, edema, syncope Respiratory: Denies: cough, dyspnea, wheezes, hemoptysis, stridor Gastrointestinal: Denies: abdominal pain, nausea, vomiting, diarrhea, constipation, hematemesis, melena, hematochezia Genitourinary: Denies: dysuria, frequency, hematuria, discharge Musculoskeletal: Denies: back pain, neck pain, arthralgia, myalgia Integumentary: Denies: rash, abrasion, lesions Neurological: Denies: headache, weakness, numbness, paresthesias, confusion, abnormal gait, vertigo Psychiatric: Denies: anxiety, depression, suicidal thoughts, homicidal thoughts , auditory hallucinations, visual hallucinations Endocrine: Denies: fatigue Hematological/Lymphatic: Denies: easy bleeding, easy bruising Allergic/Immunologic: Denies: facial swelling, urticaria Past Medical History - Past Medical History Medical history: Reports: COPD, diabetes, hyperlipidemia, hypertension, peripheral artery disease, renal disease, other Surgical history: Reports: other (right renal stent known to be occluded), LE bypass (aortobifemoral bypass with multiple graft thrombectomies) Psychiatric history: Reports: no psych history - Social History Smoking Status: Current every day smoker Smokeless Tobacco Status: No Alcohol use: Reports: occasionally Drug use: Reports: none Physical Exam - General Limitations: no limitations General appearance: alert, in no apparent distress - Head Head exam: atraumatic, normocephalic, normal inspection - Eye Eye exam: Present: normal appearance, PERRL, EOMI - ENT ENT exam: normal exam, normal oropharynx, mucous membranes moist - Neck Neck exam: Present: normal inspection, full ROM, trachea midline - Chest Chest inspection: Present: normal inspection, symmetric chest wall rise - Respiratory Respiratory exam: Present: normal lung sounds bilaterally - Cardiovascular Cardiovascular exam: Present: regular rate, normal rhythm, normal heart sounds - Abdominal Exam Abdominal exam: Present: soft, Non-Tender. Absent: tenderness, distention, guarding, rebound, rigidity - Extremities Exam Extremities exam: Present: normal inspection, full ROM. Absent: tenderness, pedal edema - Expanded Lower Extremity Exam Ankle exam: Present: tenderness (Medially and laterally). Absent: swelling, ecchymosis Gait: not tested/not observed - Back Exam Back exam: Present: normal inspection, full ROM. Absent: tenderness - Neurological Exam Neurological exam: Present: alert, oriented X3 - Psychiatric Psychiatric exam: Present: normal affect, normal mood - Skin Skin exam: Present: warm, dry, intact, normal color Course - Reevaluation(s) Reevaluation #1: 52-year-old female comes in because of her blood sugars reading high at home she has not been eating or drinking. Blood sugar here was 1146. ABG shows a normal pH of 7.41, lactic acid is 1.5. Time: 15:40 - Consultations Consultation #1: Discussed with Dr. Terrell, request lactic acid and ABG Time: 14:28 Consultation #2: Discussed with Dr. Terrell. Time: 15:39 Vital Signs Temperature 97.7 F 02/17/18 12:40 Pulse Rate 105 02/17/18 12:40 Respiratory Rate 20 02/17/18 12:40 Blood Pressure 84/36 02/17/18 12:40 O2 Sat by Pulse Oximetry 98 02/17/18 12:40 Temperature 97.7 F 02/17/18 12:45 Pulse Rate 105 02/17/18 12:45 Respiratory Rate 20 02/17/18 12:45 Blood Pressure 84/36 02/17/18 12:45 O2 Sat by Pulse Oximetry 98 02/17/18 12:45 Oxygen Delivery Oxygen Delivery Room Air Medical Decision Making - Lab Data Result diagrams: 02/17/18 13:21 02/17/18 13:21 Lab Results 02/17/18 02/17/18 02/17/18 Range/Units 12:35 12:37 13:20 WBC (4.3-11.1) K/mcL RBC (3.82-4.97) M/mcL Hgb (11.5-15.4) g/dL Hct (35.3-44.9) % MCV (83.0-100.0) fL MCH (28.0-33.3) pg MCHC (31.6-35.5) g/dL RDW (11.5-14.5) % Plt Count (140-400) K/mcL MPV (9.4-12.4) fL Immature Gran % (0-4) % Seg Neutrophils % % Lymphocytes % % Monocytes % % Eosinophils % % Basophils % % Neutrophils # (1.6-8.9) K/mcL Lymphocytes # (0.6-4.6) K/mcL Monocytes # (0.0-1.3) K/mcL Eosinophils # (0.0-0.6) K/mcL Basophils # (0.0-0.2) K/mcL ABG pH (7.32-7.45) pH Units ABG pCO2 (35-45) mmHg ABG pO2 (85-104) mmHg ABG HCO3 (21-27) mEq/L ABG Total CO2 (20-26) mEq/L ABG O2 Saturation (95-98) % ABG Base Excess (-2 to 3) mEq/L O2 Delivery Device Inspired O2 (1-15=lpm [id number]=%) Sodium (136-145) mEq/L Potassium (3.5-5.1) mEq/L Chloride (98-107) mEq/L Carbon Dioxide (23-29) mEq/L BUN (6-20) mg/dL Creatinine (0.60-1.20) mg/dL Est GFR ( Amer) (> 60) Est GFR (Non-Af Amer) (> 60) BUN/Creatinine Ratio (6-26) Glucose (70-105) mg/dL POC Glucose > 600 H* > 600 H* (70-99) mg/dL Calculated Osmolality (280-300) Lactic Acid (0.5-2.2) mmol/L Calcium (8.6-10.3) mg/dL Troponin I (< 0.04) ng/mL Beta-Hydroxybutyric Acd (0.02-0.27) mmol/L Urine Color Yellow (Yellow) Urine Clarity Cloudy A (Clear) Urine pH 6.0 (5.0-8.0) pH Units Ur Specific [place] > 1.030 H (1.010-1.025) Urine Protein Negative (Neg-Trace) mg/dL Urine Glucose (UA) >=1000 H (Normal) mg/dL Urine Ketones Negative (Negative) mg/dL Urine Blood Trace H (Negative) Urine Nitrite Negative (Negative) Urine Bilirubin Negative (Negative) Urine Urobilinogen Normal (Normal) mg/dL Ur Leukocyte Esterase Trace H (Negative) Urine Microscopic RBC 0-3 (0-3) per hpf Urine Microscopic WBC 0-3 (0-3) per hpf Ur Squamous Epith Cells Many H (None-Few) per lpf Ur Culture Indicated? NO. A (NO) 02/17/18 02/17/18 02/17/18 Range/Units 13:21 13:21 13:21 WBC 6.6 (4.3-11.1) K/mcL RBC 4.87 (3.82-4.97) M/mcL Hgb 14.7 (11.5-15.4) g/dL Hct 40.8 (35.3-44.9) % MCV 83.8 (83.0-100.0) fL MCH 30.2 (28.0-33.3) pg MCHC 36.0 H (31.6-35.5) g/dL RDW 14.9 H (11.5-14.5) % Plt Count 200 (140-400) K/mcL MPV 12.7 H (9.4-12.4) fL Immature Gran % 0.6 (0-4) % Seg Neutrophils % 75.5 % Lymphocytes % 14.9 % Monocytes % 6.4 % Eosinophils % 2.0 % Basophils % 0.6 % Neutrophils # 5.0 (1.6-8.9) K/mcL Lymphocytes # 1.0 (0.6-4.6) K/mcL Monocytes # 0.4 (0.0-1.3) K/mcL Eosinophils # 0.1 (0.0-0.6) K/mcL Basophils # 0.0 (0.0-0.2) K/mcL ABG pH (7.32-7.45) pH Units ABG pCO2 (35-45) mmHg ABG pO2 (85-104) mmHg ABG HCO3 (21-27) mEq/L ABG Total CO2 (20-26) mEq/L ABG O2 Saturation (95-98) % ABG Base Excess (-2 to 3) mEq/L O2 Delivery Device Inspired O2 (1-15=lpm [id number]=%) Sodium 113 L* (136-145) mEq/L Potassium 4.3 (3.5-5.1) mEq/L Chloride 76 L (98-107) mEq/L Carbon Dioxide 23 (23-29) mEq/L BUN 45 H (6-20) mg/dL Creatinine 2.12 H (0.60-1.20) mg/dL Est GFR ( Amer) 30 L (> 60) Est GFR (Non-Af Amer) 24 L (> 60) BUN/Creatinine Ratio 21 (6-26) Glucose 1146 H* (70-105) mg/dL POC Glucose (70-99) mg/dL Calculated Osmolality 306 H (280-300) Lactic Acid (0.5-2.2) mmol/L Calcium 9.7 (8.6-10.3) mg/dL Troponin I < 0.03 (< 0.04) ng/mL Beta-Hydroxybutyric Acd 0.36 H (0.02-0.27) mmol/L Urine Color (Yellow) Urine Clarity (Clear) Urine pH (5.0-8.0) pH Units Ur Specific [place] (1.010-1.025) Urine Protein (Neg-Trace) mg/dL Urine Glucose (UA) (Normal) mg/dL Urine Ketones (Negative) mg/dL Urine Blood (Negative) Urine Nitrite (Negative) Urine Bilirubin (Negative) Urine Urobilinogen (Normal) mg/dL Ur Leukocyte Esterase (Negative) Urine Microscopic RBC (0-3) per hpf Urine Microscopic WBC (0-3) per hpf Ur Squamous Epith Cells (None-Few) per lpf Ur Culture Indicated? (NO) 02/17/18 02/17/18 Range/Units 14:45 15:03 WBC (4.3-11.1) K/mcL RBC (3.82-4.97) M/mcL Hgb (11.5-15.4) g/dL Hct (35.3-44.9) % MCV (83.0-100.0) fL MCH (28.0-33.3) pg MCHC (31.6-35.5) g/dL RDW (11.5-14.5) % Plt Count (140-400) K/mcL MPV (9.4-12.4) fL Immature Gran % (0-4) % Seg Neutrophils % % Lymphocytes % % Monocytes % % Eosinophils % % Basophils % % Neutrophils # (1.6-8.9) K/mcL Lymphocytes # (0.6-4.6) K/mcL Monocytes # (0.0-1.3) K/mcL Eosinophils # (0.0-0.6) K/mcL Basophils # (0.0-0.2) K/mcL ABG pH 7.41 (7.32-7.45) pH Units ABG pCO2 38 (35-45) mmHg ABG pO2 68 L (85-104) mmHg ABG HCO3 24 (21-27) mEq/L ABG Total CO2 25 (20-26) mEq/L ABG O2 Saturation 93 L (95-98) % ABG Base Excess -1 (-2 to 3) mEq/L O2 Delivery Device Room Air Inspired O2 21.0 (1-15=lpm [id number]=%) Sodium (136-145) mEq/L Potassium (3.5-5.1) mEq/L Chloride (98-107) mEq/L Carbon Dioxide (23-29) mEq/L BUN (6-20) mg/dL Creatinine (0.60-1.20) mg/dL Est GFR ( Amer) (> 60) Est GFR (Non-Af Amer) (> 60) BUN/Creatinine Ratio (6-26) Glucose (70-105) mg/dL POC Glucose (70-99) mg/dL Calculated Osmolality (280-300) Lactic Acid 1.5 (0.5-2.2) mmol/L Calcium (8.6-10.3) mg/dL Troponin I (< 0.04) ng/mL Beta-Hydroxybutyric Acd (0.02-0.27) mmol/L Urine Color (Yellow) Urine Clarity (Clear) Urine pH (5.0-8.0) pH Units Ur Specific [place] (1.010-1.025) Urine Protein (Neg-Trace) mg/dL Urine Glucose (UA) (Normal) mg/dL Urine Ketones (Negative) mg/dL Urine Blood (Negative) Urine Nitrite (Negative) Urine Bilirubin (Negative) Urine Urobilinogen (Normal) mg/dL Ur Leukocyte Esterase (Negative) Urine Microscopic RBC (0-3) per hpf Urine Microscopic WBC (0-3) per hpf Ur Squamous Epith Cells (None-Few) per lpf Ur Culture Indicated? (NO) Critical Care Time Critical Care Time: Yes Total Critical Care Time: 30 Attestation: The high probability of a clinically significant, sudden or life threatening deterioration of the [endocrine] system(s) required my full and direct attention , intervention and personal management. The aggregate critical care time was [30 ] minutes. This time is in addition to time spent performing reported procedures but includes the following: [x] Data Review and interpretation [x] Patient assessment and monitoring of vital signs [x] Documentation [x] Medication orders and management
[2018-02-17 13:38] LABS: Basophils % 0.6 %; Eosinophils # 0.1 K/mcL (0.0-0.6); Hematocrit 40.8 % (35.3-44.9); Hemoglobin 14.7 g/dL (11.5-15.4); Immature Granulocytes % 0.6 % (0-4); Lymphocytes % 14.9 %; Mean Corpuscular Hemoglobin 30.2 pg (28.0-33.3); Mean Corpuscular Volume 83.8 fL (83.0-100.0); Mean Platelet Volume 12.7 fL (9.4-12.4); Monocytes # 0.4 K/mcL (0.0-1.3); Monocytes % 6.4 %; Platelet Count 200 K/mcL (140-400); Red Blood Count 4.87 M/mcL (3.82-4.97); Red Cell Distribution Width 14.9 % (11.5-14.5); Segmented Neutrophils % 75.5 %
[2018-02-17 13:41] LABS: Bilirubin,Urine Negative (Negative); Blood,Urine Trace (Negative); Clarity,Urine Cloudy (Clear); Color,Urine Yellow (Yellow); Glucose,Urine (UA) >=1000 mg/dL (Normal); Ketones,Urine Negative (Negative); Leukocyte Esterase,Urine Trace (Negative); Nitrite,Urine Negative (Negative); Protein,Urine Negative (Neg-Trace); Specific Gravity,Urine > 1.030 (1.010-1.025); Urobilinogen,Urine Normal (Normal)
[2018-02-17 13:57] LABS: Troponin I < 0.03 ng/mL (< 0.04)
[2018-02-17 14:00] LABS: RBC,Urine 0-3 per hpf (0-3); Squamous Epithelial Cell,Urine Many per lpf (None-Few); WBC,Urine 0-3 per hpf (0-3)
[2018-02-17 14:20] LABS: BUN/Creatinine Ratio 21 (6-26); Blood Urea Nitrogen 45 mg/dL (6-20); Calcium 9.7 mg/dL (8.6-10.3); Carbon Dioxide 23 mEq/L (23-29); Chloride 76 mEq/L (98-107); Glucose 1146 mg/dL (70-105); Osmolality,Calculated 306 (280-300); Potassium 4.3 mEq/L (3.5-5.1); Sodium 113 mEq/L (136-145); eGFR For African Americans 30 (> 60); eGFR For Non-African Americans 24 (> 60)
[2018-02-17] MEDS ORDERED: *HR* Dextrose 50 % in Water (Syg) 50 ML SYRINGE IVP PRN (14:29)
[2018-02-17] MEDS ORDERED: Insulin Human Regular 100 UNIT in 0.9 % Sodium Chloride 100 ML IVC SCH (14:30)
[2018-02-17] MEDS ORDERED: Insulin Human Regular 8 UNIT in 0.9 % Sodium Chloride 10 ML IV ONE (14:57)
[2018-02-17 15:07] LABS: ABG Base Excess -1 mEq/L (-2 to 3); ABG HCO3 24 mEq/L (21-27); ABG Oxygen Saturation 93 % (95-98); ABG PCO2 38 mmHg (35-45); ABG PH 7.41 pH Units (7.32-7.45); ABG PO2 68 mmHg (85-104); ABG TCO2 25 mEq/L (20-26)
[2018-02-17] MEDS ORDERED: 0.9 % Sodium Chloride 1,000 ML ONE (15:17)
[2018-02-17] MEDS ORDERED: *HR* FentaNYL (PF) 100 MCG/2 ML VIAL IVP ONE (15:35)
[2018-02-17] MEDS ORDERED: *HR* Promethazine 25 MG/ML VIAL IVP ONE (15:36)
[2018-02-17] MEDS ORDERED: Naloxone 0.4 MG/ML INJ IVP PRN ×2 (16:04→16:08)
[2018-02-17] MEDS ORDERED: *HR* FentaNYL (PF) 100 MCG/2 ML VIAL IVP PRN (16:10)
--- NOTE | 2018-02-17 16:16 | Internal Med History&Physical ---
Date of Encounter: 02/17/18 Time of Encounter: 16:13 Internal Medicine - H&P: HPI Chief complaint: symptoms of hyperglycemia with blurry vision,polydipsia, polyuria History of present illness: Ms. Santillan is a 52 year old female symptoms with IDDM who presents with of uncontrolled hyperglycemia with blurry vision,polydipsia, polyuria. Fell yesterday with right ankle pain and possible minimally displaced fracture The patient is under the care of Dr. Jocelyn Orellana of endocrinology and was supposed to have an outpatient evaluation today in the clinic. She has originally been on Levemir 50 units every morning, NovoLog sliding scale, Victoza. Due to perceived side effects of insulin regimen making her feel sick , she has discontinued her insulin regimen for the last 6 weeks. Since then she has developed worsening and progressive blurry vision, polyuria, polydipsia. She developed progressive symptoms status worse over the last few days leading to a fall last evening with injury to her right ankle. She does have a history of severe PAD is status post bilateral femoral bypass on xarelto, Plavix, Pletal EKG personally reviewed with rate of 100, normal sinus rhythm XR/XR foot 3V RT IMPRESSION: Right ankle: No acute osseous abnormality. Right foot: Cortical irregularity in the medial/proximal aspect of the medial cuneiform could represent artifact or minimally displaced fracture. Correlate for point tenderness in the medial midfoot. XR/XR chest 1V portable IMPRESSION: No acute abnormality. XR/XR ankle complete min 3V RT IMPRESSION: Right ankle: No acute osseous abnormality. Past Med Surg Social Fam HX - Past Medical History Medical history: COPD, diabetes, hyperlipidemia, hypertension, peripheral artery disease, renal disease, other Psychiatric history: no psych history - Past Surgical History Surgical History: other (right renal stent known to be occluded), LE bypass ( aortobifemoral bypass with multiple graft thrombectomies) - Social History Smoking Status: Current every day smoker Smokeless Tobacco Status: No Alcohol use: occasionally Drug use: none Internal Medicine - H&P: Meds Atorvastatin [Lipitor] 40 mg PO HS 11/14/16 [History] Cilostazol [Pletal] 100 mg PO BID 11/14/16 [History] Cyanocobalamin (Vitamin B-12) [Vitamin B-12] 2,000 mcg PO DAILY 11/14/16 [ History] Gabapentin [Neurontin] 600 mg PO TID 11/14/16 [History] Lisinopril/Hydrochlorothiazide [Zestoretic 20-25 mg Tablet] 1 each PO DAILY [History] Pantoprazole Sodium [Protonix] 20 mg PO DAILY 11/14/16 [History] Tramadol HCl [Ultram] 50 mg PO QID 11/14/16 [History] Docusate Sodium [Dok] 100 mg PO BID 12/19/16 [History] Rivaroxaban [Xarelto] 20 mg PO DAILY #30 tablet 12/20/16 [Rx] Albuterol Sulfate [Albuterol Inhaler] 2 puff IH Q6HR PRN #1 hfa.aer.ad 09/17/17 [Rx] Aspirin [Lo-Dose Aspirin EC] 81 mg PO DAILY 02/17/18 [History] BuPROPion [Wellbutrin] 100 mg PO DAILY 02/17/18 [History] Cholecalciferol (D-3) [Vitamin D] 1,000 unit PO DAILY 02/17/18 [History] Clopidogrel [Plavix] 75 mg PO DAILY 02/17/18 [History] Folic Acid 1 mg PO DAILY 02/17/18 [History] 3 Allergy/AdvReac Type Severity Reaction Status Date / Time acetaminophen [From Percocet] Allergy Anaphylaxis Verified 12/19/16 07:10 Oxycodone [From Percocet] Allergy Anaphylaxis Verified 12/19/16 07:10 All Systems PM: A 10-system review of systems was performed and is negative for pertinent findings except as documented above in the HPI. Review of systems: ROS 14 point review of systems reviewed as best as possible given presentation. Pertinent positive or negative as per HPI or otherwise reviewed as negative - Constitutional Vitals: Temp Pulse Resp BP Pulse Ox 97.7 F 94 18 104/66 98 02/17/18 12:45 02/17/18 16:10 02/17/18 16:10 02/17/18 16:10 02/17/18 16:10 Exam: General - AAO x 3 Psych - Appropriate affect/speech. No agitation Eyes - IVELISSE. Eye lids intact. No scleral icterus Heart - Sinus tachycardia. RRR. S1 and S2 present. No added HS/murmurs appreciated. No elevated JVD appreciated. Lung - Adequate air entry b/l, No crackles/wheezes appreciated GI - Soft, non-tender. No hepatosplenomegaly/ascites. BS+ - No CVA/suprapubic tenderness or palpable bladder distension Skin - Intact. No rash/petechiae/ecchymosis. Warm extremities MSK - right ankle in bandage Internal Med - H&P Results - Labs CBC & Chem 7: 02/17/18 13:21 02/17/18 13:21 Labs: Short CBC 02/17/18 Range/Units 13:21 WBC 6.6 (4.3-11.1) K/mcL Hgb 14.7 (11.5-15.4) g/dL Hct 40.8 (35.3-44.9) % Plt Count 200 (140-400) K/mcL Neutrophils # 5.0 (1.6-8.9) K/mcL BMP 02/17/18 13:21 Sodium 113 L* Potassium 4.3 Chloride 76 L Carbon Dioxide 23 BUN 45 H Creatinine 2.12 H Glucose 1146 H* Calcium 9.7 Cardiac Enzymes 02/17/18 Range/Units 13:21 Troponin I < 0.03 (< 0.04) ng/mL Urine 02/17/18 Range/Units 13:20 Urine Color Yellow (Yellow) Urine Clarity Cloudy A (Clear) Urine pH 6.0 (5.0-8.0) pH Units Ur Specific [place] > 1.030 H (1.010-1.025) Urine Protein Negative (Neg-Trace) mg/dL Urine Glucose (UA) >=1000 H (Normal) mg/dL - ABG Interpretation ABG results: 02/17/18 15:03 ABG pH 7.41 ABG pCO2 38 ABG pO2 68 L ABG HCO3 24 ABG Total CO2 25 ABG O2 Saturation 93 L ABG Base Excess -1 - Impressions ITS Impressions Ankle X-Ray 02/17/18 12:56 IMPRESSION: Right ankle: No acute osseous abnormality. Right foot: Cortical irregularity in the medial/proximal aspect of the medial cuneiform could represent artifact or minimally displaced fracture. Correlate for point tenderness in the medial midfoot. D/ / August Haines MD / August Haines MD Interpreting Provider: August Haines MD Chest X-Ray 02/17/18 12:56 IMPRESSION: No acute abnormality. D/ / 02/17/2018 13:30:32 Noah Fernández MD / adriana Interpreting Provider: Noah Fernández MD Foot X-Ray 02/17/18 12:56 IMPRESSION: Right ankle: No acute osseous abnormality. Right foot: Cortical irregularity in the medial/proximal aspect of the medial cuneiform could represent artifact or minimally displaced fracture. Correlate for point tenderness in the medial midfoot. D/ / August Haines MD / August Haines MD Interpreting Provider: August Haines MD - Assessment and plan (1) Uncontrolled diabetes mellitus with hyperglycemia Current Visit: Yes Status: Acute Assessment and plan: Admitted with insulin drip, glucose check On clears for now Continue to optimize sugar control and transition to insulin for outpatient in the coming days Hyperglycemic episode due to noncompliance on insulin Follow-up with endocrinology Dr. 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; Z79.4 - petroleum terminal plant operator (current) use of insulin; Z79.4 - correction (current) use of insulin; Z79.4 - petroleum terminal plant operator (current) use of insulin (2) Hyponatremia Current Visit: Yes Status: Acute Assessment and plan: Component of pseudohyponatremia related to uncontrolled blood sugar We will also treat with IV fluids for hydration (3) Dehydration Current Visit: Yes Status: Acute Assessment and plan: IV fluids, trend creatinine (4) ALBINA (acute kidney injury) Current Visit: Yes Status: Acute Assessment and plan: Secondary to dehydration, uncontrolled hyperglycemia. We will treat with continuous IV fluids, trend cr (5) Right ankle injury Current Visit: Yes Status: Acute Assessment and plan: Discussed with Dr. Iverson orthopedic surgery who will evaluate tomorrow Qualifiers: Encounter type: initial encounter Qualified Code(s): S99.911A - Unspecified injury of right ankle, initial encounter (6) Peripheral arterial disease Current Visit: No Status: Acute Assessment and plan: Continue antiplatelet therapy. Holding xarelto overnight pending orthopedic evaluation - Time Spent With Patient Total time spent is greater than 50% in coordination of care (as documented) at patient's floor/unit and/or counseling patient:
[2018-02-17] MEDS: 0.9 % Sodium Chloride 1,000 ML IVC SCH (18:49)
[2018-02-17] MEDS: Gabapentin 300 MG CAPSULE PO SCH (20:09)
[2018-02-17] MEDS: traMADol 50 MG TABLET PO PRN (20:10)
[2018-02-18 00:41] LABS: Calcium 8.7 mg/dL (8.6-10.3); Potassium 3.4 mEq/L (3.5-5.1)
[2018-02-18] MEDS: 0.9 % Sodium Chloride 1,000 ML IVC SCH (01:00)
[2018-02-18] MEDS ORDERED: D5% in Water 1,000 ML IVC PRN (02:11)
[2018-02-18] MEDS ORDERED: Dextrose Gel 15 GM/37.5 ML TUBE PO PRN ×2 (02:11)
[2018-02-18] MEDS ORDERED: Insulin DETEMIR 100 UNIT/ML X5UNITS SQ SCH ×2 (02:30→21:00)
[2018-02-18] MEDS: Insulin DETEMIR 100 UNIT/ML X5UNITS SQ SCH ×2 (03:20→21:06)
--- NOTE | 2018-02-18 03:40 | Event Note ---
Date of Encounter: 02/17/18 Time of Encounter: 22:10 Paged by RN that patient's BP is unrecordable; evaluated at bedside; manual could not be obtained but automatic reading was SBP in 50s; Patient is awake, able to answer slowly but reports fatigue and weakness; daughter at bedside; Patient is admitted for hyperglycemia, on IV insulin drip, just turned off due to significant drop in blood sugars; of note, patient has a h/o- low BP readings ; Chest- S1, S2 heard, regular rate; lungs are clear to auscultation; abdomen is soft and nontender; Stat BMP, Lactic acid ordered; 1L NS bolus and continue NS at 150cc/hr. Patient to be transferred to ; Followed BMP and lactate- mild hypokalemia, resolved acidosis, blood sugars again noted to be increasing, lactic acid normal. Will give another 1L NS bolus; BP improved to systolic 90s after the initial bolus but was dropping again; Give 15units s.c Levemir and continue SSI; check HbA1C, TSH and cortisol levels;
[2018-02-18 05:09] LABS: Albumin 2.9 g/dL (3.5-5.7); Albumin/Globulin Ratio 1.2 (1.1-2.2); Bilirubin,Total 0.5 mg/dL (0.3-1.0); Calcium 7.9 mg/dL (8.6-10.3); Globulin 2.4 g/dL (2.4-3.5); Total Protein 5.3 g/dL (6.4-8.9)
[2018-02-18 05:23] LABS: Thyroid Stimulating Hormone 1.591 mcIU/mL (0.340-5.600)
[2018-02-18 06:24] LABS: Basophils % 0.4 %; Eosinophils # 0.2 K/mcL (0.0-0.6); Eosinophils % 3.7 %; Hematocrit 33.7 % (35.3-44.9); Hemoglobin 12.4 g/dL (11.5-15.4); Immature Granulocytes % 1.1 % (0-4); Lymphocytes # 1.5 K/mcL (0.6-4.6); Lymphocytes % 28.3 %; Mean Corpuscular HGB Conc 36.8 g/dL (31.6-35.5); Mean Corpuscular Hemoglobin 29.9 pg (28.0-33.3); Mean Corpuscular Volume 81.2 fL (83.0-100.0); Mean Platelet Volume 12.6 fL (9.4-12.4); Monocytes # 0.3 K/mcL (0.0-1.3); Monocytes % 6.3 %; Neutrophils # 3.2 K/mcL (1.6-8.9); Platelet Count 126 K/mcL (140-400); Red Blood Count 4.15 M/mcL (3.82-4.97); Red Cell Distribution Width 14.6 % (11.5-14.5); Segmented Neutrophils % 60.2 %
[2018-02-18 08:02] LABS: Estimated Average Glucose 441 mg/dl
[2018-02-18] MEDS: Cholecalciferol (D-3) 1,000 UNIT TABLET PO SCH (09:04)
[2018-02-18] MEDS: Cyanocobalamin (B-12) 1,000 MCG TABLET PO SCH (09:04)
[2018-02-18] MEDS: Gabapentin 300 MG CAPSULE PO SCH ×3 (09:04→20:18)
[2018-02-18] MEDS: traMADol 50 MG TABLET PO PRN ×2 (09:05→17:34)
[2018-02-18] MEDS: Insulin LISPRO 300 UNITS/3 ML VIAL SQ SCH ×4 (09:05→21:05)
[2018-02-18] MEDS: Folic Acid 1 MG TABLET PO SCH (09:05)
[2018-02-18] MEDS: Aspirin Enteric Coated 81 MG Tablet PO SCH (11:15)
--- NOTE | 2018-02-18 12:23 | Electrocardiograph Report ---
[place] [id number] Test Date: 2018-02-17 Pat Name: Maria Dolores Santillan Department: 104 Room: [facility] Gender: F Arborer: MELISSA : 1965 Requested By: David Bell Order Number: [id number] Reading MD: Ajith Ortiz Measurements Intervals [place] Rate: 100 P: 59 TX: 171 QRS: -2 QRSD: 89 T: 38 QT: 256 QTc: 313 Interpretive Statements SINUS TACHYCARDIA NONSPECIFIC ST & T-WAVE ABNORMALITY Electronically Signed On 02-18-2018 12:21:30 EDT by Ajith Ortiz
[2018-02-18] MEDS ORDERED: Gadolinium Contrast Agent (WT Based) IV PRN (13:13)
--- NOTE | 2018-02-18 13:21 | Podiatry Progress Note ---
Date of Encounter: 02/18/18 Objective - Vital Signs Vital Signs: Vital Signs Temp Pulse Resp BP Pulse Ox 02/18/18 11:17 97.6 F 80 18 108/67 95 02/18/18 07:02 98.0 F 80 16 103/57 97 02/18/18 06:00 100/64 02/18/18 05:00 84/47 02/18/18 04:02 98.0 F 81 16 90/52 98 02/18/18 03:00 98/54 02/18/18 01:20 95 87/44 02/18/18 00:28 98.8 F 95 16 79/37 94 02/18/18 00:15 101 85/57 02/18/18 00:00 90 76/66 02/17/18 23:45 106 83/42 02/17/18 23:15 98.7 F 94 18 91/59 93 02/17/18 23:00 93 91/59 02/17/18 22:58 93 86/42 02/17/18 22:55 105 78/60 02/17/18 22:20 73/45 02/17/18 22:05 54/32 02/17/18 20:20 93 02/17/18 19:08 98.0 F 91 18 94/61 97 02/17/18 18:03 98.9 F 92 17 102/71 94 02/17/18 17:28 16 101/68 Intake and Output 02/17/18 02/18/18 02/18/18 23:59 07:59 15:59 Intake Total 41.0 / 41.0 1100 / 1100 1120 / 1120 Output Total 400 / 400 550 / 550 Balance -359.0 / -359.0 550 / 550 1120 / 1120 Intake: IV Fluids 41.0 / 41.0 1000 / 1000 1000 / 1000 0.9 % Sodium Chloride 1,000 ML 1000 / 1000 1000 / 1000 @ 150 mls/hr IVC .[id number] KIKE Rx #:[id number] HumuLIN R 100 UNIT In 0.9 % 41.0 / 41.0 Sodium Chloride 100 ML @ 2 UNIT /HR 2.02 mls/hr IVC CONT KIKE Rx #:[id number] Oral 0 / 0 100 / 100 120 / 120 Output: Urine 400 / 400 550 / 550 Other: Meal Breakfast Stool Size Moderate Stool Consistency soft Stool Color Brown Weight 78 kg 80.4 kg Blood Glucose* 225 360 292 Patient Weight 02/18/18 23:59 Weight 80.4 kg - Lab Result Diagrams: 02/18/18 06:11 02/18/18 04:32 Labs: Abnormal lab results Hct 33.7 % (35.3-44.9) L 02/18/18 06:11 MCV 81.2 fL (83.0-100.0) L 02/18/18 06:11 MCHC 36.8 g/dL (31.6-35.5) H 02/18/18 06:11 RDW 14.6 % (11.5-14.5) H 02/18/18 06:11 Plt Count 126 K/mcL (140-400) L 02/18/18 06:11 MPV 12.6 fL (9.4-12.4) H 02/18/18 06:11 ABG pO2 68 mmHg (85-104) L 02/17/18 15:03 ABG O2 Saturation 93 % (95-98) L 02/17/18 15:03 Sodium 131 mEq/L (136-145) L 02/18/18 04:32 Carbon Dioxide 19 mEq/L (23-29) L 02/18/18 04:32 BUN 36 mg/dL (6-20) H 02/18/18 04:32 Creatinine 1.50 mg/dL (0.60-1.20) H 02/18/18 04:32 Est GFR ( Amer) 44 (> 60) L 02/18/18 04:32 Est GFR (Non-Af Amer) 36 (> 60) L 02/18/18 04:32 Glucose 362 mg/dL (70-105) H 02/18/18 04:32 POC Glucose > 600 mg/dL (70-99) H* 02/17/18 18:11 Hemoglobin A1c 17.0 % (-5.6) H 02/18/18 04:32 Calcium 7.9 mg/dL (8.6-10.3) L 02/18/18 04:32 AST 11 Units/L (13-39) L 02/18/18 04:32 Alkaline Phosphatase 112 Units/L (34-104) H 02/18/18 04:32 Serum Total Protein 5.3 g/dL (6.4-8.9) L 02/18/18 04:32 Albumin 2.9 g/dL (3.5-5.7) L 02/18/18 04:32 Beta-Hydroxybutyric Acd 0.36 mmol/L (0.02-0.27) H 02/17/18 13:21 Urine Clarity Cloudy (Clear) A 02/17/18 13:20 Ur Specific [place] > 1.030 (1.010-1.025) H 02/17/18 13:20 Urine Glucose (UA) >=1000 mg/dL (Normal) H 02/17/18 13:20 Urine Blood Trace (Negative) H 02/17/18 13:20 Ur Leukocyte Esterase Trace (Negative) H 02/17/18 13:20 Ur Squamous Epith Cells Many per lpf (None-Few) H 02/17/18 13:20 Ur Culture Indicated? NO. (NO) A 02/17/18 13:20 Consult Discharge Plan - Plan Referrals: Katlyn Spears, ADALBERTO [Primary Care Provider] - 02/26/18 11:00 am
--- NOTE | 2018-02-18 13:21 | Podiatry Consult Note ---
Date of Encounter: 02/18/18 Time of Encounter: 12:00 Assessment and Plan (1) Right ankle injury Current visit: Yes Status: Acute There is a suspected minimally displaced fracture of the medial cuneiform however patient reports noted weakness of foot Unable to dorsiflex or perform inversion or eversion of foot Also reports severe pain of mid foot Due to inability to move foot will perform MRI to evaluate for soft tissue injury At this time will continue to immobilize in posterior splint Patient will need diabetic cast boot to bedside prior to discharge NWB at this time to RLE until after MRI Consider PT evaluation Ice as needed for pain control 20 min on/20 min off- elevate at all times Pain control at this time- patient reports she is allergic to percocet. There is no appearance of infection to foot No noted ecchymosis, minimal edema Will follow up after MRI Ankle X-Ray 02/17/18 12:56 IMPRESSION: Right ankle: No acute osseous abnormality. Right foot: Cortical irregularity in the medial/proximal aspect of the medial cuneiform could represent artifact or minimally displaced fracture. Correlate for point tenderness in the medial midfoot. D/ / August Haines MD / August Haines MD Interpreting Provider: August Haines MD Foot X-Ray 02/17/18 12:56 IMPRESSION: Right ankle: No acute osseous abnormality. Right foot: Cortical irregularity in the medial/proximal aspect of the medial cuneiform could represent artifact or minimally displaced fracture. Correlate for point tenderness in the medial midfoot. D/ / August Haines MD / August Haines MD Interpreting Provider: August Haines MD Qualifiers: Encounter type: initial encounter Qualified Code(s): S99.911A - Unspecified injury of right ankle, initial encounter History of Present Illness HPI: Ms. Santillan is a 52 year old female who presented to [facility] on 02/17 for evaluation of a right ankle injury. Patient was admitted for hyperglycemia and hypotension. Patient has a medical history significant for PAD, DM and tobacco use. Patients daughter at bedside, reports patient was sitting and tried to stand and it just appeared that her foot completed folded over on itself. Patient states she is not sure what happened. States she is in severe pain to the entire midfoot and feels like she cannot move the foot at all. Patient has posterior splint in place and is resting comfortably. Denies any fevers, chills , n/v or flu like symptoms. BG is better controlled today. States she is feeling somewhat better. Past Med Surg Social Fam HX - Past Medical History Medical history: COPD, diabetes, hyperlipidemia, hypertension, peripheral artery disease, renal disease, other Psychiatric history: no psych history - Past Surgical History Surgical History: other, LE bypass - Social History Smoking Status: Current every day smoker Packs per day: 1/2 Smokeless Tobacco Status: No Alcohol use: none Drug use: none Medications and Allergies Atorvastatin [Lipitor] 40 mg PO HS 11/14/16 [History] Cilostazol [Pletal] 100 mg PO BID 11/14/16 [History] Cyanocobalamin (Vitamin B-12) [Vitamin B-12] 2,000 mcg PO DAILY 11/14/16 [ History] Gabapentin [Neurontin] 600 mg PO TID 11/14/16 [History] Lisinopril/Hydrochlorothiazide [Zestoretic 20-25 mg Tablet] 1 each PO DAILY [History] Pantoprazole Sodium [Protonix] 20 mg PO DAILY 11/14/16 [History] Tramadol HCl [Ultram] 50 mg PO QID 11/14/16 [History] Docusate Sodium [Dok] 100 mg PO BID 12/19/16 [History] Rivaroxaban [Xarelto] 20 mg PO DAILY #30 tablet 12/20/16 [Rx] Albuterol Sulfate [Albuterol Inhaler] 2 puff IH Q6HR PRN #1 [id number] 09/17/17 [Rx] Aspirin [Lo-Dose Aspirin EC] 81 mg PO DAILY 02/17/18 [History] BuPROPion [Wellbutrin] 100 mg PO DAILY 02/17/18 [History] Cholecalciferol (D-3) [Vitamin D] 1,000 unit PO DAILY 02/17/18 [History] Clopidogrel [Plavix] 75 mg PO DAILY 02/17/18 [History] Folic Acid 1 mg PO DAILY 02/17/18 [History] 3 Allergy/AdvReac Type Severity Reaction Status Date / Time acetaminophen [From Percocet] Allergy Anaphylaxis Verified 12/19/16 07:10 Oxycodone [From Percocet] Allergy Anaphylaxis Verified 12/19/16 07:10 All Systems Reviewed: The remainder of the systems were reviewed and are negative Physical Exam - Constitutional Vitals: Temp Pulse Resp BP Pulse Ox 97.6 F 80 18 108/67 95 02/18/18 11:17 02/18/18 11:17 02/18/18 11:17 02/18/18 11:17 02/18/18 11:17 Exam: General Examination: CONSTITUTIONAL: Alert, oriented, in no acute distress, non-toxic. EXTREMITIES: CFT 3 seconds all toes. Edema +1 and pedal pulses palpable. SKIN: Intact skin, no ulcerations, no signs of trauma, no rashes or lesions. NEUROLOGIC: Intact sensation to light touch MUSCULOSKELETAL: There is pain wit palpation of entire foot most profound to dorsal and medial foot near suspected fracture site. Also states she has pain diffuse across plantar aspect of foot and arch. . No noted ecchymosis or erythema. Mild edema noted diffuse across foot. No palpable fluctuance. No warmth. Drop foot appearance noted. Patient states she is unable to dorsiflex foot. Unable to invert foot. Cannot perform eversion. Appears guarded related to pain however states she cannot move it. Does have minimal movement of toes. Sensation intact to toes. Cap refil <3 seconds and toes warm. No visible trauma to foot. No visible malalignment Results - Labs Result Diagrams: 02/18/18 06:11 02/18/18 04:32 Labs: Abnormal lab results Hct 33.7 % (35.3-44.9) L 02/18/18 06:11 MCV 81.2 fL (83.0-100.0) L 02/18/18 06:11 MCHC 36.8 g/dL (31.6-35.5) H 02/18/18 06:11 RDW 14.6 % (11.5-14.5) H 02/18/18 06:11 Plt Count 126 K/mcL (140-400) L 02/18/18 06:11 MPV 12.6 fL (9.4-12.4) H 02/18/18 06:11 ABG pO2 68 mmHg (85-104) L 02/17/18 15:03 ABG O2 Saturation 93 % (95-98) L 02/17/18 15:03 Sodium 131 mEq/L (136-145) L 02/18/18 04:32 Carbon Dioxide 19 mEq/L (23-29) L 02/18/18 04:32 BUN 36 mg/dL (6-20) H 02/18/18 04:32 Creatinine 1.50 mg/dL (0.60-1.20) H 02/18/18 04:32 Est GFR ( Amer) 44 (> 60) L 02/18/18 04:32 Est GFR (Non-Af Amer) 36 (> 60) L 02/18/18 04:32 Glucose 362 mg/dL (70-105) H 02/18/18 04:32 POC Glucose > 600 mg/dL (70-99) H* 02/17/18 18:11 Hemoglobin A1c 17.0 % (-5.6) H 02/18/18 04:32 Calcium 7.9 mg/dL (8.6-10.3) L 02/18/18 04:32 AST 11 Units/L (13-39) L 02/18/18 04:32 Alkaline Phosphatase 112 Units/L (34-104) H 02/18/18 04:32 Serum Total Protein 5.3 g/dL (6.4-8.9) L 02/18/18 04:32 Albumin 2.9 g/dL (3.5-5.7) L 02/18/18 04:32 Beta-Hydroxybutyric Acd 0.36 mmol/L (0.02-0.27) H 02/17/18 13:21 Urine Clarity Cloudy (Clear) A 02/17/18 13:20 Ur Specific [place] > 1.030 (1.010-1.025) H 02/17/18 13:20 Urine Glucose (UA) >=1000 mg/dL (Normal) H 02/17/18 13:20 Urine Blood Trace (Negative) H 02/17/18 13:20 Ur Leukocyte Esterase Trace (Negative) H 02/17/18 13:20 Ur Squamous Epith Cells Many per lpf (None-Few) H 02/17/18 13:20 Ur Culture Indicated? NO. (NO) A 02/17/18 13:20 H & H 02/18/18 Range/Units 06:11 Hgb 12.4 D (11.5-15.4) g/dL Hct 33.7 L (35.3-44.9) % All other labs normal. Consult Discharge Plan - Plan Referrals: Katlyn Spears CNP [Primary Care Provider] - 02/26/18 11:00 am
--- NOTE | 2018-02-18 13:53 | Internal Med Progress Note ---
Date of Encounter: 02/18/18 Time of Encounter: 13:50 - Assessment and plan (1) Uncontrolled diabetes mellitus with hyperglycemia Current Visit: Yes Status: Acute Assessment and plan: Improved blood sugars. Patient has been transitioned off IV insulin and has been placed on sliding scale insulin. Will monitor blood sugars and adjust insulin regimen accordingly. Stressed the importance of taking insulin as she needs it to control her blood sugars better. If she wants to transition to a different medication if she needs to make sure her doctor is aware so that they can change her medications. She expressed understanding. We will continue diabetic diet. Qualifiers: Diabetes mellitus type: due to underlying condition Diabetes mellitus oysterman insulin use: with oysterman use Qualified Code(s): E08.65 - Diabetes mellitus due to underlying condition with hyperglycemia; Z79.4 - retirement ( current) use of insulin; Z79.4 - oysterman (current) use of insulin; Z79.4 - retirement (current) use of insulin; Z79.4 - retirement (current) use of insulin (2) Peripheral arterial disease Current Visit: Yes Status: Acute Assessment and plan: Continue aspirin, Pletal, Plavix. Continue Lipitor (3) Hyponatremia Current Visit: Yes Status: Acute Assessment and plan: Pseudohyponatremia due to hyperglycemia. Now resolved (4) Dehydration Current Visit: Yes Status: Acute Assessment and plan: Resolved now. (5) Right ankle injury Current Visit: Yes Status: Acute Qualifiers: Encounter type: initial encounter Qualified Code(s): S99.911A - Unspecified injury of right ankle, initial encounter (6) ALBINA (acute kidney injury) Current Visit: Yes Status: Acute Assessment and plan: Patient does appear to have chronic kidney disease stage III at baseline. Her baseline creatinine appears to be around 1.5. Creatinine is improving today. We will continue to follow renal function closely. (7) Ankle fracture, right Current Visit: Yes Status: Suspected Assessment and plan: Patient with suspected medial cuneiform fracture. Minimally displaced. Bandaged. Podiatric consulted. We will follow recommendations. Pain control in the meantime. Qualifiers: Encounter type: initial encounter Fracture type: closed Qualified Code(s) : S82.891A - Other fracture of right lower leg, initial encounter for closed fracture - Time Spent With Patient Total time spent is greater than 50% in coordination of care (as documented) at patient's floor/unit and/or counseling patient: - Subjective Interval history: Patient seen earlier today. Doing well this morning. Blood sugars are better controlled. He reports that she has had trouble with different insulin products as she developed nausea and her blood sugars remained high. She states that her blood sugars were always greater than 600 and as high as the machine could read his own while taking insulin so she decided to stop taking it. She does see an electro optics engineer but has not seen her for 3 months and was scheduled to see her yesterday. She does continue to have some pain in her right foot but it is well controlled. - Constitutional Vitals: Temp Pulse Resp BP Pulse Ox 97.6 F 80 18 108/67 95 02/18/18 11:17 02/18/18 11:17 02/18/18 11:17 02/18/18 11:17 02/18/18 11:17 General appearance: Present: cooperative, A&O X 3, answers questions appropriately - Neck Neck exam general surgery: Present: supple, trachea midline. Absent: lymphadenopathy - Respiratory Respiratory exam: Present: CTAB. Absent: accessory muscle use, rales, rhonchi, wheezes - Cardiovascular Cardiovascular exam: Present: RRR, +S1, +S2. Absent: diastolic murmur, gallop, rubs, systolic murmur - GI/Abdominal GI/Abdominal exam: Present: normal bowel sounds, soft, no peritoneal signs. Absent: distended, tenderness - Extremities Exam Extremities exam: Present: warm, radial pulses palpable and symmetrical. Absent : calf tenderness, cyanotic, pedal edema Additional comments: Right lower extremity bandaged - Neurological Exam Neurological exam: Present: CN II-XII intact, oriented X3, no focal deficits. Absent: pronater drift, facial droop, speech deficit Internal Medicine: Result - Labs CBC & Chem 7: 02/18/18 06:11 02/18/18 04:32 Labs: Short CBC 02/18/18 Range/Units 06:11 WBC 5.4 (4.3-11.1) K/mcL Hgb 12.4 D (11.5-15.4) g/dL Hct 33.7 L (35.3-44.9) % Plt Count 126 L (140-400) K/mcL Neutrophils # 3.2 (1.6-8.9) K/mcL BMP 02/18/18 02/18/18 00:00 04:32 Sodium 132 L D 131 L Potassium 3.4 L 4.0 Chloride 101 104 Carbon Dioxide 23 19 L BUN 40 H 36 H Creatinine 1.75 H 1.50 H Glucose 247 H 362 H Calcium 8.7 7.9 L Liver Function 02/18/18 Range/Units 04:32 Total Bilirubin 0.5 (0.3-1.0) mg/dL AST 11 L (13-39) Units/L ALT 8 (7-52) Units/L Alkaline Phosphatase 112 H (34-104) Units/L Albumin 2.9 L (3.5-5.7) g/dL - ABG Interpretation ABG results: ABG ABG pH 7.41 pH Units (7.32-7.45) 02/17/18 15:03 ABG pCO2 38 mmHg (35-45) 02/17/18 15:03 ABG pO2 68 mmHg (85-104) L 02/17/18 15:03 ABG O2 Saturation 93 % (95-98) L 02/17/18 15:03 Consult Discharge Plan - Plan Referrals: Katlyn Spears, RECONSTRUCTIVE SURGEON [Primary Care Provider] - 02/26/18 11:00 am
[2018-02-18] MEDS: *HR* Rivaroxaban 10 MG TABLET PO SCH (19:45)
[2018-02-18] MEDS ORDERED: Insulin LISPRO 300 UNITS/3 ML VIAL SQ SCH (21:00)
[2018-02-19] MEDS: traMADol 50 MG TABLET PO PRN ×2 (03:45→07:57)
[2018-02-19 05:40] LABS: Basophils % 0.5 %; Eosinophils # 0.2 K/mcL (0.0-0.6); Eosinophils % 4.9 %; Hematocrit 31.9 % (35.3-44.9); Hemoglobin 11.2 g/dL (11.5-15.4); Immature Granulocytes % 0.3 % (0-4); Lymphocytes # 1.2 K/mcL (0.6-4.6); Lymphocytes % 31.7 %; Mean Corpuscular HGB Conc 35.1 g/dL (31.6-35.5); Mean Corpuscular Hemoglobin 29.5 pg (28.0-33.3); Mean Corpuscular Volume 83.9 fL (83.0-100.0); Mean Platelet Volume 12.3 fL (9.4-12.4); Monocytes # 0.3 K/mcL (0.0-1.3); Monocytes % 6.8 %; Platelet Count 135 K/mcL (140-400); Red Cell Distribution Width 14.8 % (11.5-14.5); Segmented Neutrophils % 55.8 %
[2018-02-19 05:58] LABS: BUN/Creatinine Ratio 20 (6-26); Blood Urea Nitrogen 21 mg/dL (6-20); Calcium 8.3 mg/dL (8.6-10.3); Carbon Dioxide 23 mEq/L (23-29); Chloride 106 mEq/L (98-107); Glucose 258 mg/dL (70-105); Osmolality,Calculated 290 (280-300); Potassium 3.3 mEq/L (3.5-5.1); Sodium 134 mEq/L (136-145); eGFR For African Americans > 60 (> 60); eGFR For Non-African Americans 56 (> 60)
[2018-02-19] MEDS: Cyanocobalamin (B-12) 1,000 MCG TABLET PO SCH (07:57)
[2018-02-19] MEDS: Aspirin Enteric Coated 81 MG Tablet PO SCH (07:57)
[2018-02-19] MEDS: Cholecalciferol (D-3) 1,000 UNIT TABLET PO SCH (07:57)
[2018-02-19] MEDS: Gabapentin 300 MG CAPSULE PO SCH ×3 (07:57→20:31)
[2018-02-19] MEDS: Folic Acid 1 MG TABLET PO SCH (07:58)
[2018-02-19] MEDS: Insulin LISPRO 300 UNITS/3 ML VIAL SQ SCH ×4 (08:01→20:33)
[2018-02-19] MEDS: Insulin DETEMIR 100 UNIT/ML X5UNITS SQ SCH ×2 (08:48→20:33)
[2018-02-19] MEDS: *HR* HYDROcodone/Acet 5/325 mg TABLET PO PRN ×3 (10:49→20:34)
--- NOTE | 2018-02-19 12:34 | Podiatry Progress Note ---
Date of Encounter: 02/19/18 Time of Encounter: 12:00 - Assessment and Plan (1) Ankle fracture, right Current Visit: Yes Status: Suspected Xray of right foot reviewed: There is a suspected minimally displaced fracture of the medial cuneiform however patient reports noted weakness of foot Unable to dorsiflex or perform inversion or eversion of foot Complaints of increased pain to right mid foot MRI of right foot completed and reviewed by Dr. Iverson, suspected fracture of the navicular. Plan: We will plan to treat patient conservatively with a diabetic cast boot to the RLE, weight bear as tolerated. Use pain as her guide. If pain with ambulation, recommend keeping weight off of RLE with the use of a walker. Patient states she uses a walker and wheelchair at home currently. Ice as needed for pain control 20 min on/20 min off- elevate at all times Pain control at this time- patient reports she is allergic to percocet. Spoke with patient over phone in regards to MRI results of right foot, patient has additional complaints of left foot pain. Patient states she tried to stand on the left foot today and had pain. Will order an x -ray of the left foot. Will follow up with patient after xray is obtained. Patient will need a one to two week follow up with Dr. Iverson in Podiatry clinic after discharge from the hospital. Qualifiers: Encounter type: initial encounter Fracture type: closed Qualified Code(s) : S82.891A - Other fracture of right lower leg, initial encounter for closed fracture (2) Type 2 diabetes mellitus with insulin therapy Current Visit: No Status: Chronic Subjective Interval history: Patient is sitting up in bed with spouse at bedside. Posterior splint dry and intact to the RLE. Patient states she has had increased pain to the right ankle and foot since yesterday. Patient states the lacey wrap is loose and states her ankle feels better with more compression. Patient is awaiting her MRI and it is scheduled at 1 pm today. Objective - Vital Signs Vital Signs: Vital Signs Temp Pulse Resp BP Pulse Ox 02/19/18 11:30 98.0 F 81 16 111/67 97 02/19/18 08:00 98.1 F 84 18 114/50 97 02/19/18 07:48 98.1 F 84 18 114/50 97 02/19/18 03:59 98.0 F 86 16 124/55 94 02/18/18 23:34 98.1 F 86 16 91/55 97 02/18/18 19:09 97.9 F 83 16 135/70 100 02/18/18 17:13 98.3 F 98 18 108/56 99 02/18/18 14:35 106/59 Intake and Output 02/18/18 02/19/18 02/19/18 23:59 07:59 15:59 Intake Total 240 / 240 240 / 240 Output Total 0 / 0 Balance 240 / 240 240 / 240 Intake: Oral 240 / 240 240 / 240 Output: Urine 0 / 0 Other: Meal Dinner Breakfast Percent of Meal Consumed 100% 100% Weight 81.4 kg 81.4 kg Blood Glucose* 280 235 353 Patient Weight 02/19/18 23:59 Weight 81.4 kg - Exam Exam: General: A&O X3, calm and cooperative, pleasant. Vascular: toes of right foot are pink,warm and dry, no cyanosis. Neurological: sensation intact to toes of right foot. Musculoskeletal: Posterior splint dry and intact to RLE. toes are pink, warm and dry. - Lab Result Diagrams: 02/19/18 05:04 02/19/18 05:04 Labs: Abnormal lab results WBC 3.7 K/mcL (4.3-11.1) L 02/19/18 05:04 RBC 3.80 M/mcL (3.82-4.97) L 02/19/18 05:04 Hgb 11.2 g/dL (11.5-15.4) L 02/19/18 05:04 Hct 31.9 % (35.3-44.9) L 02/19/18 05:04 RDW 14.8 % (11.5-14.5) H 02/19/18 05:04 Plt Count 135 K/mcL (140-400) L 02/19/18 05:04 ABG pO2 68 mmHg (85-104) L 02/17/18 15:03 ABG O2 Saturation 93 % (95-98) L 02/17/18 15:03 Sodium 134 mEq/L (136-145) L 02/19/18 05:04 Potassium 3.3 mEq/L (3.5-5.1) L 02/19/18 05:04 BUN 21 mg/dL (6-20) H 02/19/18 05:04 Est GFR (Non-Af Amer) 56 (> 60) L 02/19/18 05:04 Glucose 258 mg/dL (70-105) H 02/19/18 05:04 POC Glucose 396 mg/dL (70-99) H 02/18/18 17:11 Hemoglobin A1c 17.0 % (-5.6) H 02/18/18 04:32 Calcium 8.3 mg/dL (8.6-10.3) L 02/19/18 05:04 AST 11 Units/L (13-39) L 02/18/18 04:32 Alkaline Phosphatase 112 Units/L (34-104) H 02/18/18 04:32 Serum Total Protein 5.3 g/dL (6.4-8.9) L 02/18/18 04:32 Albumin 2.9 g/dL (3.5-5.7) L 02/18/18 04:32 Beta-Hydroxybutyric Acd 0.36 mmol/L (0.02-0.27) H 02/17/18 13:21 Urine Clarity Cloudy (Clear) A 02/17/18 13:20 Ur Specific [place] > 1.030 (1.010-1.025) H 02/17/18 13:20 Urine Glucose (UA) >=1000 mg/dL (Normal) H 02/17/18 13:20 Urine Blood Trace (Negative) H 02/17/18 13:20 Ur Leukocyte Esterase Trace (Negative) H 02/17/18 13:20 Ur Squamous Epith Cells Many per lpf (None-Few) H 02/17/18 13:20 Ur Culture Indicated? NO. (NO) A 02/17/18 13:20 Consult Discharge Plan - Plan Referrals: Katlyn Spears, ADALBERTO [Primary Care Provider] - 02/26/18 11:00 am
--- NOTE | 2018-02-19 14:50 | Internal Med Progress Note ---
Date of Encounter: 02/19/18 Time of Encounter: 11:00 - Assessment and plan (1) Uncontrolled diabetes mellitus with hyperglycemia Current Visit: Yes Status: Acute Assessment and plan: Blood sugars are improved but remain elevated. We will add a morning dose of Levemir to current regimen. Patient agreeable to continue using Levemir and Humalog at home. Diabetes education provided. Qualifiers: Diabetes mellitus type: due to underlying condition Diabetes mellitus manager terminal insulin use: with manager terminal use Qualified Code(s): E08.65 - Diabetes mellitus due to underlying condition with hyperglycemia; Z79.4 - meterman ( current) use of insulin; Z79.4 - meterman (current) use of insulin; Z79.4 - meterman (current) use of insulin; Z79.4 - [facility] (current) use of insulin (2) Ankle fracture, right Current Visit: Yes Status: Suspected Assessment and plan: Awaiting MRI. Will follow podiatry recommendations Qualifiers: Encounter type: initial encounter Fracture type: closed Qualified Code(s) : S82.891A - Other fracture of right lower leg, initial encounter for closed fracture (3) Peripheral arterial disease Current Visit: Yes Status: Acute Assessment and plan: Continue Plavix, Pletal, aspirin and Xarelto (4) Right ankle injury Current Visit: Yes Status: Acute Assessment and plan: MRI ordered by podiatry. Avoid weightbearing until results available. We will consult PT once MRI available and podiatry has placed recommendations. Will place her on [place] for pain control. Qualifiers: Encounter type: initial encounter Qualified Code(s): S99.911A - Unspecified injury of right ankle, initial encounter (5) Hyponatremia Current Visit: Yes Status: Resolved (6) Dehydration Current Visit: Yes Status: Resolved (7) ALBINA (acute kidney injury) Current Visit: Yes Status: Resolved Assessment and plan: Acute kidney injury has now resolved - Time Spent With Patient Total time spent is greater than 50% in coordination of care (as documented) at patient's floor/unit and/or counseling patient: - Subjective Interval history: Patient is doing well overall. Blood sugars are better controlled although they remain elevated. She does report right lower extremity pain especially when she is sitting up. Awaiting MRI of the right foot. - Constitutional Vitals: Temp Pulse Resp BP Pulse Ox 98.0 F 92 16 111/67 97 02/19/18 11:30 02/19/18 12:33 02/19/18 11:30 02/19/18 11:30 02/19/18 11:30 General appearance: Present: cooperative, A&O X 3, answers questions appropriately - Neck Neck exam general surgery: Present: supple, trachea midline. Absent: lymphadenopathy - Respiratory Respiratory exam: Present: CTAB. Absent: accessory muscle use, rales, rhonchi, wheezes - Cardiovascular Cardiovascular exam: Present: RRR, +S1, +S2. Absent: diastolic murmur, gallop, rubs, systolic murmur - GI/Abdominal GI/Abdominal exam: Present: normal bowel sounds, soft, no peritoneal signs. Absent: distended, tenderness - Extremities Exam Extremities exam: Present: warm, radial pulses palpable and symmetrical. Absent : calf tenderness, cyanotic, pedal edema Additional comments: Right lower extremity in splint. Internal Medicine: Result - Labs CBC & Chem 7: 02/19/18 05:04 02/19/18 05:04 Labs: Short CBC 02/19/18 Range/Units 05:04 WBC 3.7 L (4.3-11.1) K/mcL Hgb 11.2 L (11.5-15.4) g/dL Hct 31.9 L (35.3-44.9) % Plt Count 135 L (140-400) K/mcL Neutrophils # 2.0 (1.6-8.9) K/mcL BMP 02/19/18 05:04 Sodium 134 L Potassium 3.3 L Chloride 106 Carbon Dioxide 23 BUN 21 H Creatinine 1.03 Glucose 258 H Calcium 8.3 L - ABG Interpretation ABG results: ABG ABG pH 7.41 pH Units (7.32-7.45) 02/17/18 15:03 ABG pCO2 38 mmHg (35-45) 02/17/18 15:03 ABG pO2 68 mmHg (85-104) L 02/17/18 15:03 ABG O2 Saturation 93 % (95-98) L 02/17/18 15:03 - Impressions Impressions Foot MRI 02/19/18 13:13 IMPRESSION: 1. Subacute appearing nondisplaced fracture of the medial cuneiform with intra-articular extension involving the navicular cuneiform articulation. No significant surrounding edema identified. No additional fractures are evident. 2. Mild nonspecific subcutaneous edema with no organized fluid collection identified. 3. Intrinsic muscular edema throughout the foot. Findings can be seen in the setting of denervation changes related to longstanding diabetes. 4. Partially visualized serpiginous T1 and T2 signal of the partially imaged talus most suggestive of avascular necrosis. Similar signal change noted within the 4th metatarsal also suggestive of avascular necrosis. 5. Small amount of joint fluid within the hindfoot and midfoot articulations, likely reactive. D/ / Manuel Dodson MD / Manuel Dodson MD Interpreting Provider: Manuel Dodson MD Consult Discharge Plan - Plan Referrals: Katlyn Spears CNP [Primary Care Provider] - 02/26/18 11:00 am
[2018-02-19] MEDS: *HR* Rivaroxaban 10 MG TABLET PO SCH (21:01)
[2018-02-19] MEDS ORDERED: Melatonin 3 MG TABLET PO PRN (23:34)
[2018-02-20] MEDS: *HR* HYDROcodone/Acet 5/325 mg TABLET PO PRN ×4 (00:36→13:53)
[2018-02-20] MEDS ORDERED: Insulin DETEMIR 100 UNIT/ML X5UNITS SQ SCH (09:00)
[2018-02-20] MEDS: Insulin LISPRO 300 UNITS/3 ML VIAL SQ SCH ×2 (09:14→12:30)
[2018-02-20] MEDS: Gabapentin 300 MG CAPSULE PO SCH (09:15)
[2018-02-20] MEDS: Aspirin Enteric Coated 81 MG Tablet PO SCH (09:16)
[2018-02-20] MEDS: Folic Acid 1 MG TABLET PO SCH (09:16)
[2018-02-20] MEDS: Cyanocobalamin (B-12) 1,000 MCG TABLET PO SCH (09:16)
[2018-02-20] MEDS: Cholecalciferol (D-3) 1,000 UNIT TABLET PO SCH (09:16)
[2018-02-20 11:36] VITALS: BP 128/74
--- NOTE | 2018-02-20 13:06 | Podiatry Progress Note ---
Date of Encounter: 02/20/18 Time of Encounter: 12:00 - Assessment and Plan (1) Right ankle injury Status: Acute There is a suspected minimally displaced fracture of the medial cuneiform however patient reports noted weakness of foot Diabetic cast boot in place to RLE- patient notes comfort- she is to wear at all times- NWB without boot MRI of right foot negative for abnormality Patient complained of pain to left foot on assessment yesterday, xray negative- no clinical signs of infection- no appearance of trauma PT evaluation complete, patient refused therapy- states she has walker and wheelchair at home and does not have insurance for therapy Ice as needed for pain control 20 min on/20 min off- elevate at all times Elevate BLE as often as possible Tight glucose control to promote healing Pain control per internal medicine There is no appearance of infection to foot No noted ecchymosis, minimal edema Patient will need follow up with in clinic 1 week after discharge Ankle X-Ray 02/17/18 12:56 IMPRESSION: Right ankle: No acute osseous abnormality. Right foot: Cortical irregularity in the medial/proximal aspect of the medial cuneiform could represent artifact or minimally displaced fracture. Correlate for point tenderness in the medial midfoot. D/ / August Haines MD / August Haines MD Interpreting Provider: August Haines MD Foot X-Ray 02/17/18 12:56 IMPRESSION: Right ankle: No acute osseous abnormality. Right foot: Cortical irregularity in the medial/proximal aspect of the medial cuneiform could represent artifact or minimally displaced fracture. Correlate for point tenderness in the medial midfoot. D/ / August Haines MD / August Haines MD Interpreting Provider: August Haines MD Foot MRI 02/19/18 13:13 IMPRESSION: 1. Subacute appearing nondisplaced fracture of the medial cuneiform with intra-articular extension involving the navicular cuneiform articulation. No significant surrounding edema identified. No additional fractures are evident. 2. Mild nonspecific subcutaneous edema with no organized fluid collection identified. 3. Intrinsic muscular edema throughout the foot. Findings can be seen in the setting of denervation changes related to longstanding diabetes. 4. Partially visualized serpiginous T1 and T2 signal of the partially imaged talus most suggestive of avascular necrosis. Similar signal change noted within the 4th metatarsal also suggestive of avascular necrosis. 5. Small amount of joint fluid within the hindfoot and midfoot articulations, likely reactive. D/ / Manuel Dodson MD / Manuel Dodson MD Interpreting Provider: Manuel Dodson MD Foot X-Ray 02/19/18 16:57 IMPRESSION: 1. No acute osseous abnormality. 2. Mild hallux valgus with associated osseous bunion and mild 1st MTP osteoarthritis. D/ / Manuel Dodson MD / Manuel Dodson MD Interpreting Provider: Manuel Dodson MD Qualifiers: Encounter type: initial encounter Qualified Code(s): S99.911A - Unspecified injury of right ankle, initial encounter Subjective Interval history: Ms. Santillan is a 52 year old female who presented to [facility] on 02/17 for evaluation of a right ankle injury. Patient was admitted for hyperglycemia and hypotension. Patient has a medical history significant for PAD, DM and tobacco use. Patients daughter at bedside. Was noted to have a fracture of the medial cuneiform on xray. Patient has underwent MRI of right and xray of the left which are negative for further injury. DIabetic cast boot has been delivered to bedside and placed to patient per bracing department. Patient states her foot feels much better with it on. States she is in a little pain but ok. Wants to go home Objective - Vital Signs Vital Signs: Vital Signs Temp Pulse Resp BP Pulse Ox 02/20/18 11:34 98.8 F 86 16 128/74 99 02/20/18 07:43 98.5 F 76 16 120/73 99 02/20/18 03:20 98 F 80 16 103/55 95 02/20/18 03:19 72 02/20/18 00:25 72 02/19/18 23:32 98 F 88 16 116/67 96 02/19/18 20:43 82 02/19/18 18:59 98.1 F 83 16 116/61 96 02/19/18 15:36 98.1 F 81 18 128/67 97 Intake and Output 02/19/18 02/20/18 02/20/18 23:59 07:59 15:59 Intake Total 500 / 500 360 / 360 Output Total 500 / 500 350 / 350 Balance 0 / 0 10 / 10 Intake: Oral 500 / 500 360 / 360 Output: Urine 500 / 500 350 / 350 Other: Meal Lunch Breakfast Percent of Meal Consumed 90% 100% # Voids 2 Blood Glucose* [phone] - Exam Exam: Awake alert and oriented Diabetic cast boot intact and in place to RLE- will leave in place. Patient states she is able to ambulate with boot Left foot capr refill <3 seconds Pulses palpable DP/PT Extremities warm toes to tibia - Lab Result Diagrams: 02/19/18 05:04 02/19/18 05:04 Labs: Abnormal lab results WBC 3.7 K/mcL (4.3-11.1) L 02/19/18 05:04 RBC 3.80 M/mcL (3.82-4.97) L 02/19/18 05:04 Hgb 11.2 g/dL (11.5-15.4) L 02/19/18 05:04 Hct 31.9 % (35.3-44.9) L 02/19/18 05:04 RDW 14.8 % (11.5-14.5) H 02/19/18 05:04 Plt Count 135 K/mcL (140-400) L 02/19/18 05:04 ABG pO2 68 mmHg (85-104) L 02/17/18 15:03 ABG O2 Saturation 93 % (95-98) L 02/17/18 15:03 Sodium 134 mEq/L (136-145) L 02/19/18 05:04 Potassium 3.3 mEq/L (3.5-5.1) L 02/19/18 05:04 BUN 21 mg/dL (6-20) H 02/19/18 05:04 Est GFR (Non-Af Amer) 56 (> 60) L 02/19/18 05:04 Glucose 258 mg/dL (70-105) H 02/19/18 05:04 POC Glucose 208 mg/dL (70-99) H 02/20/18 11:36 Hemoglobin A1c 17.0 % (-5.6) H 02/18/18 04:32 Calcium 8.3 mg/dL (8.6-10.3) L 02/19/18 05:04 AST 11 Units/L (13-39) L 02/18/18 04:32 Alkaline Phosphatase 112 Units/L (34-104) H 02/18/18 04:32 Serum Total Protein 5.3 g/dL (6.4-8.9) L 02/18/18 04:32 Albumin 2.9 g/dL (3.5-5.7) L 02/18/18 04:32 Beta-Hydroxybutyric Acd 0.36 mmol/L (0.02-0.27) H 02/17/18 13:21 Urine Clarity Cloudy (Clear) A 02/17/18 13:20 Ur Specific [place] > 1.030 (1.010-1.025) H 02/17/18 13:20 Urine Glucose (UA) >=1000 mg/dL (Normal) H 02/17/18 13:20 Urine Blood Trace (Negative) H 02/17/18 13:20 Ur Leukocyte Esterase Trace (Negative) H 02/17/18 13:20 Ur Squamous Epith Cells Many per lpf (None-Few) H 02/17/18 13:20 Ur Culture Indicated? NO. (NO) A 02/17/18 13:20 Consult Discharge Plan - Plan Instructions: Hydrocodone/Acetaminophen (By mouth), Insulin Detemir (Injection) , Insulin Lispro (Injection), Diabetes Mellitus Type 2 in Adults (DC), Peripheral Vascular Disorders (DC) Referrals: Armen Iverson DPM [Partnered Physician] - 02/27/18 2:00 pm Jocelyn Orellana CNP [Advanced Practice Nurse] - 02/25/18 11:30 am (1 week) Katlyn Spears CNP [Primary Care Provider] - 02/26/18 11:00 am Prescriptions: HYDROcodone/Acet 5/325 mg [[place] 5-325 mg] 1 tab PO Q4HR PRN 5 Days #20 tablet PRN Reason: Mild To Moderate Pain Insulin DETEMIR [Levemir Flextouch] 25 unit SQ BID #1 insuln.pen Insulin LISPRO [HumaLOG] See Protocol SQ TIDWM #1 vial
--- NOTE | 2018-02-20 13:11 | Discharge Summary ---
- NOTES TO OUTPATIENT PROVIDER Notes to Outpatient Provider: Patient initially admitted with uncontrolled hyperglycemia with underlying history of diabetes mellitus. She was found to have a blood sugar of 1146. Was treated with IV insulin and then transitioned to subcutaneous insulin. Patient is tolerating insulin currently and will be discharged on Levemir and she will follow-up. She will follow up with her primary care provider and membership assistant for further management. She also had a recent fall and was found to have right-sided nondisplaced fracture of the medial cuneiform. Podiatry was consulted. They recommended conservative management and follow-up outpatient. Date of Encounter: 02/20/18 Time of Encounter: 13:09 - Discharge Diagnosis (1) Uncontrolled diabetes mellitus with hyperglycemia Priority: Primary Status: Acute Qualifiers: Diabetes mellitus type: due to underlying condition Diabetes mellitus computer support technician insulin use: with skilled nursing use Qualified Code(s): E08.65 - Diabetes mellitus due to underlying condition with hyperglycemia; Z79.4 - skilled nursing ( current) use of insulin; Z79.4 - optomechanical engineer (current) use of insulin; Z79.4 - optomechanical engineer (current) use of insulin; Z79.4 - skilled nursing (current) use of insulin (2) Ankle fracture, right Priority: Secondary Status: Acute Qualifiers: Encounter type: initial encounter Fracture type: closed Qualified Code(s) : S82.891A - Other fracture of right lower leg, initial encounter for closed fracture (3) Peripheral arterial disease Priority: Secondary Status: Acute (4) Right ankle injury Priority: Secondary Status: Acute Qualifiers: Encounter type: initial encounter Qualified Code(s): S99.911A - Unspecified injury of right ankle, initial encounter (5) Hyponatremia Priority: Secondary Status: Resolved (6) Dehydration Priority: Secondary Status: Resolved (7) ALBINA (acute kidney injury) Priority: Secondary Status: Resolved Hospital course: Ms. Santillan is a 52 year old female patient with history of diabetes mellitus type 2 who has not been as prescribed recently presented to the ER with complaints of high blood sugars, blurred vision, polydipsia and polyuria. She also had a fall the previous day and was having right ankle pain. She reported that she had been having nausea when she takes insulin and so stopped taking insulin a few weeks prior. On arrival to the ER here, her blood sugar was 1146. She was placed on intravenous insulin and IV fluids and her blood sugars quickly improved. She was then transitioned to subcutaneous insulin. She has been placed on diabetic diet. X-ray of her foot showed possible right medial cuneiform bone fracture. This was confirmed with the right foot MRI. Podiatry recommended conservative management with nonweightbearing. PT OT were consulted but patient did not wish to receive PT OT here as she does not currently have insurance and would not be able to afford rehabilitation or home PT. She will follow up with podiatry after discharge for further management of her right foot fracture. At this time is being discharged on Levemir and Humalog. She is willing to take these medications at home as she did not develop nausea while receiving them here. She will also follow-up with her primary care provider and endocrinology nurse practitioner after discharge. Discharge discussed with: patient, family, nurse - Time Spent with Patient Total time spent providing and/or coordinating discharge services: Greater than 30 minutes (35 min) - Discharge Medications Prescriptions: HYDROcodone/Acet 5/325 mg [[place] 5-325 mg] 1 tab PO Q4HR PRN 5 Days #20 tablet PRN Reason: Mild To Moderate Pain Insulin DETEMIR [Levemir Flextouch] 25 unit SQ BID #1 insuln.pen Insulin LISPRO [HumaLOG] See Protocol SQ TIDWM #1 vial Home Medications: Atorvastatin [Lipitor] 40 mg PO HS 11/14/16 [History] Cilostazol [Pletal] 100 mg PO BID 11/14/16 [History] Cyanocobalamin (Vitamin B-12) [Vitamin B-12] 2,000 mcg PO DAILY 11/14/16 [ History] Gabapentin [Neurontin] 600 mg PO TID 11/14/16 [History] Lisinopril/Hydrochlorothiazide [Zestoretic 20-25 mg Tablet] 1 each PO DAILY [History] Pantoprazole Sodium [Protonix] 20 mg PO DAILY 11/14/16 [History] Tramadol HCl [Ultram] 50 mg PO QID 11/14/16 [History] Docusate Sodium [Dok] 100 mg PO BID 12/19/16 [History] Rivaroxaban [Xarelto] 20 mg PO DAILY #30 tablet 12/20/16 [Rx] Albuterol Sulfate [Albuterol Inhaler] 2 puff IH Q6HR PRN #1 [email or web address] 09/17/17 [Rx] Aspirin [Lo-Dose Aspirin EC] 81 mg PO DAILY 02/17/18 [History] BuPROPion [Wellbutrin] 100 mg PO DAILY 02/17/18 [History] Cholecalciferol (D-3) [Vitamin D] 1,000 unit PO DAILY 02/17/18 [History] Clopidogrel [Plavix] 75 mg PO DAILY 02/17/18 [History] Folic Acid 1 mg PO DAILY 02/17/18 [History] HYDROcodone/Acet 5/325 mg [[place] 5-325 mg] 1 tab PO Q4HR PRN 5 Days #20 tablet 02/20/18 [Rx] Insulin DETEMIR [Levemir Flextouch] 25 unit SQ BID #1 insuln.pen 02/20/18 [Rx] Insulin LISPRO [HumaLOG] See Protocol SQ TIDWM #1 vial 02/20/18 [Rx] Allergies/Adverse Reactions: 3 Allergy/AdvReac Type Severity Reaction Status Date / Time acetaminophen [From Percocet] Allergy Anaphylaxis Verified 12/19/16 07:10 Oxycodone [From Percocet] Allergy Anaphylaxis Verified 12/19/16 07:10 Date of admission: 02/17/18 16:26 Primary care physician: Katlyn Spears CNP Consults: 02/18/18 14:49 Consult to Diabetes Education [CONS] Routine Comment: Reason for Consult: [id number] 02/20/18 10:01 Consult to Occupational Therapy [CONS] Stat Comment: Evaluate, develop and implement POC Reason for Consult: discharge planning for today Does patient have active BEDREST order?: No Is patient medically & hemodynamically stable?: Yes Consult to Physical Therapy [CONS] Stat Comment: Evaluate, develop and implement POC Reason for Consult: discharge readiness for today Does patient have active BEDREST order?: No Is patient medically & hemodynamically stable?: Yes 02/20/18 10:02 Consult to Computer Numerical Control Programmer [CONS] Routine Reason for SW Consult: medication coverage for discharge Discharging clinician: Roland Bruno Anticipated date of discharge: 02/20/18 - Constitutional Vitals: Temp Pulse Resp BP Pulse Ox 98.8 F 86 16 128/74 99 02/20/18 11:34 02/20/18 11:34 02/20/18 11:34 02/20/18 11:34 02/20/18 11:34 General appearance: Present: cooperative, A&O X 3, answers questions appropriately - Neck Neck exam general surgery: Present: supple, trachea midline. Absent: lymphadenopathy - Respiratory Respiratory exam: Present: CTAB. Absent: accessory muscle use, rales, rhonchi, wheezes - Cardiovascular Cardiovascular exam: Present: RRR, +S1, +S2. Absent: diastolic murmur, gallop, rubs, systolic murmur - GI/Abdominal GI/Abdominal exam: Present: normal bowel sounds, soft, no peritoneal signs. Absent: distended, tenderness - Extremities Exam Extremities exam: Present: warm, radial pulses palpable and symmetrical. Absent : calf tenderness, cyanotic, pedal edema Additional comments: Right lower extremity in splint - Patient Status Disposition: Home, Self-Care Condition: Serious Functional capacity at discharge: wheelchair bound Overall status at discharge: patient is progressing back to baseline - Discharge Instructions Instructions: Hydrocodone/Acetaminophen (By mouth), Insulin Detemir (Injection) , Insulin Lispro (Injection), Diabetes Mellitus Type 2 in Adults (DC), Peripheral Vascular Disorders (DC) Follow Up With: Armen Iverson DPM [Partnered Physician] - 02/27/18 2:00 pm Jocelyn Orellana CNP [Advanced Practice Nurse] - 02/25/18 11:30 am (1 week) Katlyn Spears CNP [Primary Care Provider] - 02/26/18 11:00 am - Diet and Activity Activity: increase activity as tolerated Diet: diabetic diet, low fat, low cholesterol, low salt diet
== END 2018-02-20 14:10 | disposition home or self-care (01) | DRG 638 ==
LOC: EMEROO 12:25 → SUATTDRO 16:26 → 2ANU 16:26 → 2NNU 22:54
PROVIDERS: ADMIT Internal Medicine; ATTEND Internal Medicine

== ENCOUNTER 2020-05-24 18:24 | Observation (INO) ==
[2020-05-24 19:08] LABS: Basophils % 0.2 %; Eosinophils # 0.2 K/mcL (0.0-0.6); Eosinophils % 3.2 %; Hematocrit 41.7 % (35.3-44.9); Hemoglobin 14.1 g/dL (11.5-15.4); Immature Granulocytes % 0.2 % (0-4); Lymphocytes # 0.9 K/mcL (0.6-4.6); Lymphocytes % 17.2 %; Mean Corpuscular HGB Conc 33.8 g/dL (31.6-35.5); Mean Corpuscular Hemoglobin 28.4 pg (28.0-33.3); Mean Corpuscular Volume 83.9 fL (83.0-100.0); Mean Platelet Volume 11.7 fL (9.4-12.4); Monocytes # 0.3 K/mcL (0.0-1.3); Monocytes % 5.1 %; Neutrophils # 3.9 K/mcL (1.6-8.9); Platelet Count 158 K/mcL (140-400); Red Blood Count 4.97 M/mcL (3.82-4.97); Red Cell Distribution Width 15.6 % (11.5-14.5); Segmented Neutrophils % 74.1 %; White Blood Count 5.3 K/mcL (4.3-11.1)
[2020-05-24 19:37] LABS: BUN/Creatinine Ratio 13 (6-26); Blood Urea Nitrogen 12 mg/dL (6-20); Calcium 9.6 mg/dL (8.6-10.3); Carbon Dioxide 24 mEq/L (23-29); Chloride 103 mEq/L (98-107); Glucose 100 mg/dL (70-105); Osmolality,Calculated 282 (280-300); Potassium 4.2 mEq/L (3.5-5.1); Sodium 136 mEq/L (136-145); Troponin I 0.04 ng/mL (< 0.04); eGFR For African Americans > 60 (> 60); eGFR For Non-African Americans > 60 (> 60)
[2020-05-24] MEDS ORDERED: 0.9 % Sodium Chloride 1,000 ML IVC ONE (20:00)
[2020-05-24] MEDS ORDERED: Isovue-370 500 ML BOTTLE IVP ONE (20:37)
[2020-05-24] MEDS ORDERED: Ondansetron 4 MG/2 ML VIAL IVP ONE (22:05)
[2020-05-24] MEDS ORDERED: Morphine Sulfate 2 MG/ML SYRINGE IVP STA (22:05)
[2020-05-24 23:16] LABS: Adenovirus Not Detected (Not Detect); Coronavirus 229E Not Detected (Not Detect); Coronavirus HKU1 Not Detected (Not Detect); Coronavirus NL63 Not Detected (Not Detect); Coronavirus OC43 Not Detected (Not Detect)
[2020-05-24 23:17] LABS: Bordetella Pertussis Not Detected (Not Detect); Chlamydophila pneumoniae Not Detected (Not Detect); Human Metapneumovirus Not Detected (Not Detect); Human Rhinovirus/Enterovirus Not Detected (Not Detect); Influenza A Subtype 2009 H1 Not Detected (Not Detect); Influenza B Not Detected (Not Detect); Mycoplasma pneumoniae Not Detected (Not Detect); Parainfluenza Virus 1 Not Detected (Not Detect); Parainfluenza Virus 2 Not Detected (Not Detect); Parainfluenza Virus 3 Not Detected (Not Detect); Parainfluenza Virus 4 Not Detected (Not Detect); Respiratory Syncytial Virus Not Detected (Not Detect)
[2020-05-24] MEDS ORDERED: Naloxone 0.4 MG/ML INJ IVP PRN (23:39)
[2020-05-24] MEDS ORDERED: Acetaminophen 325 MG TABLET PO PRN (23:39)
[2020-05-24] MEDS ORDERED: Perflutren Lipid Microsphere 1.3 ML in 0.9 % Sodium Chloride 8.7 ML IVP PRN (23:41)
[2020-05-24] MEDS ORDERED: Dextrose Gel 15 GM/37.5 ML TUBE PO PRN ×2 (23:45)
[2020-05-24] MEDS ORDERED: D5% in Water 1,000 ML IVC PRN (23:45)
[2020-05-24] MEDS ORDERED: *HR* Dextrose 50 % in Water (Vial) 50 ML VIAL IVP PRN (23:45)
[2020-05-25] MEDS: *HR* Heparin 5,000 UNIT/ML VIAL SQ SCH ×4 (00:52→21:13)
[2020-05-25] MEDS: Morphine Sulfate 2 MG/ML SYRINGE IVP PRN ×2 (00:53→04:54)
[2020-05-25 01:13] LABS: Basophils % 0.3 %; Eosinophils # 0.1 K/mcL (0.0-0.6); Eosinophils % 2.7 %; Hematocrit 37.8 % (35.3-44.9); Hemoglobin 12.7 g/dL (11.5-15.4); INR 1.2; Immature Granulocytes % 0.3 % (0-4); Lymphocytes # 0.8 K/mcL (0.6-4.6); Lymphocytes % 20.6 %; Mean Corpuscular HGB Conc 33.6 g/dL (31.6-35.5); Mean Corpuscular Hemoglobin 27.7 pg (28.0-33.3); Mean Corpuscular Volume 82.4 fL (83.0-100.0); Mean Platelet Volume 11.3 fL (9.4-12.4); Monocytes # 0.2 K/mcL (0.0-1.3); Neutrophils # 2.6 K/mcL (1.6-8.9); Platelet Count 143 K/mcL (140-400); Prothrombin Time 13.8 Seconds (9.4-12.1); Red Blood Count 4.59 M/mcL (3.82-4.97); Red Cell Distribution Width 15.6 % (11.5-14.5); Segmented Neutrophils % 70.1 %; White Blood Count 3.6 K/mcL (4.3-11.1)
[2020-05-25 01:28] LABS: Alanine Aminotransferase 17 Units/L (7-52); Albumin 3.5 g/dL (3.5-5.7); Albumin/Globulin Ratio 1.1 (1.1-2.2); Alkaline Phosphatase 153 Units/L (34-104); Aspartate Amino Transferase 16 Units/L (13-39); BUN/Creatinine Ratio 12 (6-26); Bilirubin,Total 0.5 mg/dL (0.3-1.0); Blood Urea Nitrogen 10 mg/dL (6-20); Calcium 8.9 mg/dL (8.6-10.3); Carbon Dioxide 22 mEq/L (23-29); Chloride 106 mEq/L (98-107); Chol/HDL Ratio 6.3 (0-4.9); Cholesterol 165 mg/dL (< 200); Globulin 3.3 g/dL (2.4-3.5); Glucose 105 mg/dL (70-105); HDL Cholesterol 26 mg/dL (40-59); LDL Cholesterol,Calculated 109 mg/dL (< 100); Magnesium 1.7 mg/dL (1.6-2.6); Osmolality,Calculated 281 (280-300); Phosphorous 3.6 mg/dL (2.7-4.5); Potassium 4.2 mEq/L (3.5-5.1); Sodium 136 mEq/L (136-145); Total Protein 6.8 g/dL (6.4-8.9); Triglycerides 152 mg/dL (< 150); eGFR For African Americans > 60 (> 60); eGFR For Non-African Americans > 60 (> 60)
[2020-05-25 05:00] LABS: Bilirubin,Urine Negative (Negative); Blood,Urine Negative (Negative); Clarity,Urine Clear (Clear); Color,Urine Light-Yellow (Yellow); Glucose,Urine (UA) Normal (Normal); Ketones,Urine Negative (Negative); Leukocyte Esterase,Urine Negative (Negative); Nitrite,Urine Negative (Negative); PH,Urine 6.5 pH Units (5.0-8.0); Protein,Urine Trace mg/dL (Neg-Trace); Specific Gravity,Urine 1.023 (1.010-1.025); Urobilinogen,Urine Normal (Normal)
[2020-05-25] MEDS ORDERED: Regadenoson 0.4 MG/5 ML SYRINGE IVP ONE (06:23)
[2020-05-25 08:35] LABS: Estimated Average Glucose 140 mg/dl
[2020-05-25] MEDS: *HR* HYDROcodone/Acet 5/325 mg TABLET PO PRN ×4 (08:54→21:12)
[2020-05-25] MEDS: Insulin LISPRO 300 UNITS/3 ML VIAL SQ SCH ×3 (09:00→17:08)
[2020-05-25] MEDS: Aspirin Enteric Coated 81 MG Tablet PO SCH (09:00)
[2020-05-25] MEDS: Gabapentin 300 MG CAPSULE PO SCH ×3 (09:00→21:12)
[2020-05-25] MEDS ORDERED: *HR* Heparin 5,000 UNIT/ML VIAL IVP ONE (14:13)
[2020-05-25] MEDS ORDERED: *HR* Heparin 5,000 UNIT/ML VIAL IVP PRN ×2 (14:13)
[2020-05-25 15:37] LABS: Heparin anti-factor XA UFH 0.09 IU/mL (0.30-0.70); INR 1.1; Prothrombin Time 12.8 Seconds (9.4-12.1)
[2020-05-25 15:48] LABS: Hemoglobin 12.8 g/dL (11.5-15.4); Mean Corpuscular Hemoglobin 27.1 pg (28.0-33.3); Mean Corpuscular Volume 84.6 fL (83.0-100.0); Mean Platelet Volume 12.4 fL (9.4-12.4); Platelet Count 158 K/mcL (140-400); Red Blood Count 4.73 M/mcL (3.82-4.97); Red Cell Distribution Width 15.8 % (11.5-14.5); White Blood Count 3.1 K/mcL (4.3-11.1)
[2020-05-25] MEDS: Heparin 25,000UNIT/250ML 1/2NS 25,000 UNIT/250 ML IV.SOLN IVC SCH (16:59)
[2020-05-25] MEDS: Metoprolol XL (24 HR) Succ 25 MG TAB.ER.24H PO SCH (17:07)
[2020-05-25] MEDS: cilostazoL 100 MG TABLET PO SCH (21:12)
[2020-05-25] MEDS: rOPINIRole 1 MG TABLET PO SCH (21:17)
[2020-05-25] MEDS: Ondansetron 4 MG/2 ML VIAL IVP PRN (23:44)
[2020-05-26 02:10] LABS: Hematocrit 37.8 % (35.3-44.9); White Blood Count 3.4 K/mcL (4.3-11.1)
[2020-05-26 02:12] LABS: Hemoglobin 12.4 g/dL (11.5-15.4); Immature Platelets 8.6 % (1.1-6.1); Mean Corpuscular HGB Conc 32.8 g/dL (31.6-35.5); Mean Corpuscular Hemoglobin 27.1 pg (28.0-33.3); Mean Corpuscular Volume 82.7 fL (83.0-100.0); Mean Platelet Volume 11.7 fL (9.4-12.4); Red Blood Count 4.57 M/mcL (3.82-4.97); Red Cell Distribution Width 15.6 % (11.5-14.5)
[2020-05-26 02:30] LABS: BUN/Creatinine Ratio 19 (6-26); Blood Urea Nitrogen 18 mg/dL (6-20); Calcium 9.2 mg/dL (8.6-10.3); Carbon Dioxide 23 mEq/L (23-29); Chloride 103 mEq/L (98-107); Glucose 114 mg/dL (70-105); Osmolality,Calculated 285 (280-300); Potassium 4.3 mEq/L (3.5-5.1); Sodium 136 mEq/L (136-145); eGFR For African Americans > 60 (> 60); eGFR For Non-African Americans > 60 (> 60)
[2020-05-26] MEDS: *HR* HYDROcodone/Acet 5/325 mg TABLET PO PRN ×3 (04:58→20:22)
[2020-05-26] MEDS: *HR* Heparin 5,000 UNIT/ML VIAL SQ SCH ×3 (05:48→20:23)
[2020-05-26] MEDS ORDERED: IVABRADINE HCL 7.5 MG TABLET PO ONE (08:39)
[2020-05-26] MEDS ORDERED: Isovue-370 500 ML BOTTLE IVP ONE ×2 (08:46→11:00)
[2020-05-26] MEDS ORDERED: hydroCHLOROthiazide 25 MG TABLET PO SCH (09:00)
[2020-05-26] MEDS ORDERED: lisinopriL 20 MG TABLET PO SCH (09:00)
[2020-05-26] MEDS: Insulin LISPRO 300 UNITS/3 ML VIAL SQ SCH ×3 (09:44→18:44)
[2020-05-26] MEDS: Cholecalciferol (D-3) 1,000 UNIT (25MCG) TABLET PO SCH (09:46)
[2020-05-26] MEDS: Metoprolol XL (24 HR) Succ 25 MG TAB.ER.24H PO SCH (09:46)
[2020-05-26] MEDS: Gabapentin 300 MG CAPSULE PO SCH ×3 (09:46→20:23)
[2020-05-26] MEDS: Cyanocobalamin (B-12) 1,000 MCG TABLET PO SCH (09:46)
[2020-05-26] MEDS: rOPINIRole 1 MG TABLET PO SCH ×2 (09:46→20:23)
[2020-05-26] MEDS: cilostazoL 100 MG TABLET PO SCH ×2 (09:46→20:23)
[2020-05-26] MEDS: Aspirin Enteric Coated 81 MG Tablet PO SCH (09:47)
[2020-05-26] MEDS: Folic Acid 1 MG TABLET PO SCH (09:47)
[2020-05-26] MEDS: Ondansetron 4 MG/2 ML VIAL IVP PRN (10:27)
[2020-05-26] MEDS: BuPROPion SR (12 HR) 100 MG TABLET PO SCH (20:22)
[2020-05-26] MEDS: Heparin 25,000UNIT/250ML 1/2NS 25,000 UNIT/250 ML IV.SOLN IVC SCH (20:35)
[2020-05-26] MEDS ORDERED: rOPINIRole 1 MG TABLET PO SCH (21:00)
[2020-05-27 01:29] LABS: Hematocrit 36.1 % (35.3-44.9); Hemoglobin 11.9 g/dL (11.5-15.4); Mean Corpuscular Hemoglobin 27.9 pg (28.0-33.3); Mean Corpuscular Volume 84.7 fL (83.0-100.0); Platelet Count 141 K/mcL (140-400); Red Blood Count 4.26 M/mcL (3.82-4.97); Red Cell Distribution Width 15.4 % (11.5-14.5); White Blood Count 2.5 K/mcL (4.3-11.1)
[2020-05-27 01:51] LABS: Calcium 9.4 mg/dL (8.6-10.3)
[2020-05-27] MEDS: *HR* Heparin 5,000 UNIT/ML VIAL SQ SCH (03:39)
[2020-05-27] MEDS: *HR* HYDROcodone/Acet 5/325 mg TABLET PO PRN (04:06)
[2020-05-27 06:53] VITALS: BP 112/67
[2020-05-27] MEDS: Insulin LISPRO 300 UNITS/3 ML VIAL SQ SCH (07:19)
[2020-05-27] MEDS: Cholecalciferol (D-3) 1,000 UNIT (25MCG) TABLET PO SCH (09:40)
[2020-05-27] MEDS: Cyanocobalamin (B-12) 1,000 MCG TABLET PO SCH (09:40)
[2020-05-27] MEDS: Aspirin Enteric Coated 81 MG Tablet PO SCH (09:40)
[2020-05-27] MEDS: rOPINIRole 1 MG TABLET PO SCH (09:40)
[2020-05-27] MEDS: Gabapentin 300 MG CAPSULE PO SCH (09:40)
[2020-05-27] MEDS: BuPROPion SR (12 HR) 100 MG TABLET PO SCH (09:40)
[2020-05-27] MEDS: Folic Acid 1 MG TABLET PO SCH (09:41)
[2020-05-27] MEDS: Metoprolol XL (24 HR) Succ 25 MG TAB.ER.24H PO SCH (09:41)
[2020-05-27] MEDS: cilostazoL 100 MG TABLET PO SCH (09:41)
[2020-05-27] MEDS: Ondansetron 4 MG/2 ML VIAL IVP PRN (09:47)
== END 2020-05-27 10:22 | disposition home or self-care (01) ==
LOC: 3BNU 18:24 → EMEROOARM 18:24 → 3BNU 05-25
PROVIDERS: ADMIT Family Medicine; ATTEND Family Medicine

== ENCOUNTER 2020-07-19 08:54 | Inpatient (IN) ==
[2020-07-19] MEDS ORDERED: Famotidine 20 MG/2 ML VIAL IVP ONE (09:20)
[2020-07-19] MEDS ORDERED: Aspirin 81 MG TAB.CHEW PO ONE ×2 (09:20→10:11)
[2020-07-19] MEDS ORDERED: Gabapentin 300 MG CAPSULE PO ONE (09:20)
[2020-07-19] MEDS ORDERED: CeFAZolin Syr 2,000MG/20 ML 2,000 MG/20 ML SYRINGE IVPB ONE (09:47)
[2020-07-19] MEDS ORDERED: *HR* Labetalol 20 MG/4 ML SYRINGE IVP PRN (09:52)
[2020-07-19] MEDS ORDERED: *HR* Promethazine 25 MG/ML VIAL IVP PRN (09:52)
[2020-07-19] MEDS ORDERED: Ondansetron 4 MG/2 ML VIAL IVP PRN (09:52)
[2020-07-19] MEDS ORDERED: *HR* Propofol 200 MG/20 ML VIAL IVP ONE (09:55)
[2020-07-19] MEDS ORDERED: *HR* Rocuronium Bromide 50 MG/5 ML VIAL ONE (09:55)
[2020-07-19] MEDS ORDERED: Lidocaine -MPF 2% 2 ML VIAL ONE (09:55)
[2020-07-19] MEDS ORDERED: *HR* FentaNYL (PF) 100 MCG/2 ML VIAL ONE (09:55)
[2020-07-19] MEDS ORDERED: Dexamethasone 4 MG/ML VIAL ONE (09:55)
[2020-07-19] MEDS ORDERED: Ringers Solution, Lactated 1,000 ML IVC SCH (10:00)
[2020-07-19] MEDS ORDERED: *HR* Etomidate 40 MG/20 ML VIAL IVP ONE ×2 (10:09)
[2020-07-19] MEDS ORDERED: Heparin 1,000 UNITS/500 mL 500 ML ONE (10:14)
[2020-07-19] MEDS ORDERED: Lidocaine -MPF 2% 5 ML VIAL ONE (10:21)
[2020-07-19] MEDS ORDERED: Metoprolol XL (24 HR) Succ 50 MG TAB.ER.24H PO ONE (10:28)
[2020-07-19] MEDS ORDERED: *HR* Norepinephrine 4 MG/4 ML VIAL IVC ONE (10:53)
[2020-07-19] MEDS ORDERED: EPINEPHrine 1 MG/ML VIAL ONE (11:02)
[2020-07-19] MEDS ORDERED: Albumin Human 5% 25.0 GM/500 ML IV.SOLN ONE (11:16)
[2020-07-19] MEDS ORDERED: EPHEDrine 50 MG/ML VIAL ONE (11:26)
[2020-07-19] MEDS ORDERED: *HR* HYDROMORPHONE 2 MG/ML VIAL ONE (13:33)
[2020-07-19] MEDS: *HR* HYDROmorphone (PF) 1 MG/ML SYRINGE IVP PRN ×6 (14:22→14:47)
[2020-07-19] MEDS ORDERED: *HR* HYDROmorphone (PF) 1 MG/ML SYRINGE IVP ONE (15:02)
[2020-07-19] MEDS ORDERED: *HR* HYDROmorphone PF 0.5 MG/0.5 ML SYRINGE IVP ONE (15:35)
[2020-07-19] MEDS ORDERED: Ringers Solution, Lactated 1,000 ML ONE (15:42)
[2020-07-19] MEDS: Ketorolac 15 MG/ML VIAL IVP SCH ×2 (17:15→23:02)
[2020-07-19] MEDS: 0.9 % Sodium Chloride 1,000 ML IVC SCH (18:46)
[2020-07-19] MEDS: *HR* FentaNYL (PF) 100 MCG/2 ML VIAL IVP ONE ×2 (19:23→22:47)
[2020-07-19] MEDS: *HR* FentaNYL PATCH 25 MCG PATCH TD SCH ×2 (19:23→23:48)
[2020-07-19] MEDS ORDERED: *HR* FentaNYL PATCH 25 MCG PATCH TD ONE (22:50)
[2020-07-20] MEDS ORDERED: Morphine Sulfate 2 MG/ML SYRINGE IVP ONE (04:09)
[2020-07-20] MEDS: Ketorolac 15 MG/ML VIAL IVP SCH ×2 (05:22→14:17)
[2020-07-20] MEDS ORDERED: *HR* LORazepam 2 MG/ML VIAL IVP ONE (05:31)
[2020-07-20] MEDS: Ondansetron 4 MG/2 ML VIAL IVP PRN (09:17)
[2020-07-20] MEDS ORDERED: Acetaminophen IV 1,000 MG/100 ML INFUS..BTL IVPB ONE (09:47)
[2020-07-20] MEDS ORDERED: Orphenadrine 60 MG/2 ML VIAL IVP ONE (10:07)
[2020-07-20] MEDS ORDERED: *HR* FentaNYL (PF) 100 MCG/2 ML VIAL IVP ONE (10:07)
[2020-07-20] MEDS: rOPINIRole 1 MG TABLET PO SCH ×2 (10:46→20:41)
[2020-07-20] MEDS: Aspirin Enteric Coated 81 MG Tablet PO SCH (10:47)
[2020-07-20] MEDS: Gabapentin 400 MG CAPSULE PO SCH ×3 (10:47→20:40)
[2020-07-20] MEDS: Albuterol 2.5 MG/3 ML NEBULIZER IH SCH ×3 (11:11→21:13)
[2020-07-20] MEDS: Metoprolol XL (24 HR) Succ 50 MG TAB.ER.24H PO SCH (12:27)
[2020-07-20] MEDS: *HR* HYDROcodone/Acet 5/325 mg TABLET PO PRN (17:45)
[2020-07-20] MEDS: Ibuprofen 800 MG TABLET PO SCH (17:46)
[2020-07-20] MEDS: BuPROPion SR (12 HR) 100 MG TABLET PO SCH (20:40)
[2020-07-20] MEDS: 0.9 % Sodium Chloride 1,000 ML IVC SCH (20:44)
[2020-07-21] MEDS: Ibuprofen 800 MG TABLET PO SCH ×4 (00:30→23:09)
[2020-07-21] MEDS: Albuterol 2.5 MG/3 ML NEBULIZER IH SCH ×4 (03:19→21:15)
[2020-07-21] MEDS: *HR* HYDROcodone/Acet 5/325 mg TABLET PO PRN (08:16)
[2020-07-21] MEDS: Aspirin Enteric Coated 81 MG Tablet PO SCH (08:16)
[2020-07-21] MEDS: Gabapentin 400 MG CAPSULE PO SCH ×3 (08:16→21:00)
[2020-07-21] MEDS: rOPINIRole 1 MG TABLET PO SCH ×2 (08:16→21:00)
[2020-07-21] MEDS: BuPROPion SR (12 HR) 100 MG TABLET PO SCH ×2 (08:17→21:00)
[2020-07-21] MEDS: Metoprolol XL (24 HR) Succ 50 MG TAB.ER.24H PO SCH (08:17)
[2020-07-21] MEDS ORDERED: *HR* HYDROcodone/Acet 5/325 mg TABLET PO ONE (09:45)
[2020-07-21] MEDS: *HR* HYDROcodone/Acet 10/325 mg TABLET PO PRN ×2 (11:55→21:00)
[2020-07-22] MEDS: Albuterol 2.5 MG/3 ML NEBULIZER IH SCH ×4 (03:57→22:22)
[2020-07-22] MEDS: BuPROPion SR (12 HR) 100 MG TABLET PO SCH ×2 (08:04→19:49)
[2020-07-22] MEDS: rOPINIRole 1 MG TABLET PO SCH ×2 (08:04→19:49)
[2020-07-22] MEDS: Metoprolol XL (24 HR) Succ 50 MG TAB.ER.24H PO SCH (08:04)
[2020-07-22] MEDS: Ibuprofen 800 MG TABLET PO SCH ×2 (08:04→15:59)
[2020-07-22] MEDS: Aspirin Enteric Coated 81 MG Tablet PO SCH (08:04)
[2020-07-22] MEDS: Gabapentin 400 MG CAPSULE PO SCH ×3 (08:04→19:49)
[2020-07-22] MEDS: *HR* HYDROcodone/Acet 10/325 mg TABLET PO PRN ×2 (08:19→19:58)
[2020-07-23 01:24] LABS: Basophils % 0.2 %; Eosinophils # 0.2 K/mcL (0.0-0.6); Eosinophils % 3.5 %; Hematocrit 23.3 % (35.3-44.9); Hemoglobin 7.4 g/dL (11.5-15.4); Immature Granulocytes % 0.8 % (0-4); Lymphocytes # 0.4 K/mcL (0.6-4.6); Lymphocytes % 8.5 %; Mean Corpuscular HGB Conc 31.8 g/dL (31.6-35.5); Mean Corpuscular Hemoglobin 28.1 pg (28.0-33.3); Mean Corpuscular Volume 88.6 fL (83.0-100.0); Mean Platelet Volume 10.7 fL (9.4-12.4); Monocytes # 0.2 K/mcL (0.0-1.3); Monocytes % 4.6 %; Platelet Count 162 K/mcL (140-400); Red Blood Count 2.63 M/mcL (3.82-4.97); Red Cell Distribution Width 18.3 % (11.5-14.5); Segmented Neutrophils % 82.4 %; White Blood Count 4.8 K/mcL (4.3-11.1)
[2020-07-23 02:05] LABS: BUN/Creatinine Ratio 20 (6-26); Blood Urea Nitrogen 22 mg/dL (6-20); Carbon Dioxide 26 mEq/L (23-29); Chloride 103 mEq/L (98-107); Glucose 113 mg/dL (70-105); Osmolality,Calculated 286 (280-300); Potassium 3.9 mEq/L (3.5-5.1); Sodium 136 mEq/L (136-145); eGFR For African Americans > 60 (> 60); eGFR For Non-African Americans 52 (> 60)
[2020-07-23] MEDS: Doxycycline 100 MG CAPSULE PO SCH ×3 (03:13→20:13)
[2020-07-23] MEDS: Albuterol 2.5 MG/3 ML NEBULIZER IH SCH ×4 (03:22→21:31)
[2020-07-23] MEDS ORDERED: Naloxone 0.4 MG/ML INJ IVP PRN (05:15)
[2020-07-23 06:33] LABS: Hematocrit 23.2 % (35.3-44.9); Hemoglobin 7.5 g/dL (11.5-15.4)
[2020-07-23] MEDS: BuPROPion SR (12 HR) 100 MG TABLET PO SCH ×2 (08:33→20:13)
[2020-07-23] MEDS: rOPINIRole 1 MG TABLET PO SCH ×2 (08:34→20:13)
[2020-07-23] MEDS: Metoprolol XL (24 HR) Succ 50 MG TAB.ER.24H PO SCH (08:34)
[2020-07-23] MEDS: Gabapentin 400 MG CAPSULE PO SCH ×3 (08:34→20:13)
[2020-07-23] MEDS: Aspirin Enteric Coated 81 MG Tablet PO SCH (08:34)
[2020-07-23] MEDS: Piperacillin/Tazobactam 3.375 GM in 0.9 % Sodium Chloride Mini Bag 100 ML IVPB SCH ×2 (08:34→15:14)
[2020-07-23] MEDS: *HR* HYDROcodone/Acet 10/325 mg TABLET PO PRN (10:54)
[2020-07-23 15:13] LABS: Bacteria,Urine Few per hpf (None-Few); Bilirubin,Urine Negative (Negative); Blood,Urine Small (Negative); Clarity,Urine Clear (Clear); Color,Urine Yellow (Yellow); Glucose,Urine (UA) Normal (Normal); Ketones,Urine Negative (Negative); Leukocyte Esterase,Urine Negative (Negative); Mucus,Urine Few per lpf (None-Few); Nitrite,Urine Negative (Negative); Protein,Urine 50 mg/dL (Neg-Trace); RBC,Urine 0-3 per hpf (0-3); Specific Gravity,Urine 1.028 (1.010-1.025); Squamous Epithelial Cell,Urine Moderate per hpf (None-Few); Urobilinogen,Urine Normal (Normal); WBC,Urine 0-3 per hpf (0-3)
[2020-07-23 15:56] LABS: Hematocrit 24.8 % (35.3-44.9); Hemoglobin 7.7 g/dL (11.5-15.4)
[2020-07-23] MEDS: MethylPREDNISolone 40 MG/ML VIAL IVP SCH (17:44)
[2020-07-23] MEDS ORDERED: Ketorolac 15 MG/ML VIAL IVP PRN (18:00)
[2020-07-23] MEDS ORDERED: *HR* OxyCODONE/APAP 5/325 TABLET PO PRN (18:00)
[2020-07-24] MEDS: Piperacillin/Tazobactam 3.375 GM in 0.9 % Sodium Chloride Mini Bag 100 ML IVPB SCH ×3 (01:06→16:06)
[2020-07-24] MEDS: Ondansetron 4 MG/2 ML VIAL IVP PRN (02:21)
[2020-07-24] MEDS: *HR* HYDROcodone/Acet 7.5/325 mg TABLET PO PRN ×3 (02:24→19:50)
[2020-07-24] MEDS: Albuterol 2.5 MG/3 ML NEBULIZER IH SCH ×5 (03:40→22:15)
[2020-07-24 05:33] LABS: Basophils % 0.3 %; Eosinophils % 0.3 %; Hematocrit 23.6 % (35.3-44.9); Hemoglobin 7.6 g/dL (11.5-15.4); Immature Granulocytes % 1.7 % (0-4); Lymphocytes # 0.3 K/mcL (0.6-4.6); Lymphocytes % 10.5 %; Mean Corpuscular HGB Conc 32.2 g/dL (31.6-35.5); Mean Corpuscular Hemoglobin 28.3 pg (28.0-33.3); Mean Corpuscular Volume 87.7 fL (83.0-100.0); Mean Platelet Volume 10.8 fL (9.4-12.4); Monocytes # 0.1 K/mcL (0.0-1.3); Monocytes % 2.8 %; Neutrophils # 2.4 K/mcL (1.6-8.9); Platelet Count 171 K/mcL (140-400); Red Blood Count 2.69 M/mcL (3.82-4.97); Segmented Neutrophils % 84.4 %; White Blood Count 2.9 K/mcL (4.3-11.1)
[2020-07-24 05:49] LABS: BUN/Creatinine Ratio 24 (6-26); Blood Urea Nitrogen 22 mg/dL (6-20); Calcium 9.1 mg/dL (8.6-10.3); Carbon Dioxide 27 mEq/L (23-29); Chloride 101 mEq/L (98-107); Glucose 163 mg/dL (70-105); Osmolality,Calculated 289 (280-300); Potassium 4.2 mEq/L (3.5-5.1); Sodium 136 mEq/L (136-145); eGFR For African Americans > 60 (> 60); eGFR For Non-African Americans > 60 (> 60)
[2020-07-24] MEDS: MethylPREDNISolone 40 MG/ML VIAL IVP SCH ×2 (06:24→17:07)
[2020-07-24] MEDS: Gabapentin 400 MG CAPSULE PO SCH ×3 (07:50→19:45)
[2020-07-24] MEDS: Aspirin Enteric Coated 81 MG Tablet PO SCH (07:51)
[2020-07-24] MEDS: rOPINIRole 1 MG TABLET PO SCH ×2 (07:51→19:45)
[2020-07-24] MEDS: Metoprolol XL (24 HR) Succ 50 MG TAB.ER.24H PO SCH (07:51)
[2020-07-24] MEDS: Doxycycline 100 MG CAPSULE PO SCH ×2 (07:51→19:45)
[2020-07-24] MEDS: BuPROPion SR (12 HR) 100 MG TABLET PO SCH ×2 (07:51→19:45)
[2020-07-24 10:24] LABS: Folate 13.6 ng/mL (3.0-16.0)
[2020-07-24] MEDS ORDERED: polyethylene glycoL 3350 17 GM POWD.PACK PO PRN ×2 (10:44→16:08)
[2020-07-24] MEDS ORDERED: Ondansetron 4 MG/2 ML VIAL IVP PRN (16:08)
[2020-07-24] MEDS ORDERED: Naloxone 0.4 MG/ML INJ IVP PRN (16:08)
[2020-07-25] MEDS: Piperacillin/Tazobactam 3.375 GM in 0.9 % Sodium Chloride Mini Bag 100 ML IVPB SCH ×2 (00:10→09:04)
[2020-07-25] MEDS: Albuterol 2.5 MG/3 ML NEBULIZER IH SCH ×3 (03:27→15:21)
[2020-07-25] MEDS: *HR* HYDROcodone/Acet 7.5/325 mg TABLET PO PRN ×3 (04:35→16:25)
[2020-07-25] MEDS: MethylPREDNISolone 40 MG/ML VIAL IVP SCH (05:47)
[2020-07-25 06:19] LABS: Eosinophils % 0.5 %; Hematocrit 26.7 % (35.3-44.9); Hemoglobin 8.6 g/dL (11.5-15.4); Immature Granulocytes % 1.4 % (0-4); Lymphocytes # 0.4 K/mcL (0.6-4.6); Mean Corpuscular HGB Conc 32.2 g/dL (31.6-35.5); Mean Corpuscular Hemoglobin 28.3 pg (28.0-33.3); Mean Corpuscular Volume 87.8 fL (83.0-100.0); Mean Platelet Volume 11.1 fL (9.4-12.4); Monocytes # 0.3 K/mcL (0.0-1.3); Monocytes % 6.5 %; Neutrophils # 3.5 K/mcL (1.6-8.9); Platelet Count 187 K/mcL (140-400); Red Blood Count 3.04 M/mcL (3.82-4.97); Red Cell Distribution Width 18.5 % (11.5-14.5); Segmented Neutrophils % 81.6 %; White Blood Count 4.3 K/mcL (4.3-11.1)
[2020-07-25 06:39] LABS: BUN/Creatinine Ratio 27 (6-26); Blood Urea Nitrogen 24 mg/dL (6-20); Calcium 9.6 mg/dL (8.6-10.3); Carbon Dioxide 27 mEq/L (23-29); Chloride 101 mEq/L (98-107); Glucose 129 mg/dL (70-105); Osmolality,Calculated 288 (280-300); Potassium 3.7 mEq/L (3.5-5.1); Sodium 136 mEq/L (136-145); eGFR For African Americans > 60 (> 60); eGFR For Non-African Americans > 60 (> 60)
[2020-07-25 07:52] VITALS: BP 141/76
[2020-07-25] MEDS: BuPROPion SR (12 HR) 100 MG TABLET PO SCH (08:38)
[2020-07-25] MEDS: Gabapentin 400 MG CAPSULE PO SCH (08:39)
[2020-07-25] MEDS: rOPINIRole 1 MG TABLET PO SCH (08:39)
[2020-07-25] MEDS ORDERED: Metoprolol XL (24 HR) Succ 50 MG TAB.ER.24H PO SCH (09:00)
[2020-07-25] MEDS ORDERED: Aspirin Enteric Coated 81 MG Tablet PO SCH (09:00)
[2020-07-25] MEDS: Doxycycline 100 MG CAPSULE PO SCH (09:04)
== END 2020-07-25 17:00 | disposition home or self-care (01) | DRG 353 ==
LOC: 3BNU 08:54 → SAMDAY 08:54 → 3BNU 16:13 → ICNU 07-23 00:31
PROVIDERS: ADMIT Surgery; ATTEND Surgery

== ENCOUNTER 2021-07-25 09:34 | Observation (INO) ==
[2021-07-25 10:09] LABS: Hematocrit 39.4 % (35.3-44.9); Immature Granulocytes % 0.4 % (0-4); Mean Corpuscular Volume 87.6 fL (83.0-100.0); Red Cell Distribution Width 14.8 % (11.5-14.5)
[2021-07-25 10:11] LABS: Basophils % 0.4 %; Eosinophils # 0.1 K/mcL (0.0-0.6); Eosinophils % 2.3 %; Hemoglobin 13.7 g/dL (11.5-15.4); Immature Platelets 6.6 % (1.1-6.1); Lymphocytes # 0.8 K/mcL (0.6-4.6); Lymphocytes % 15.6 %; Mean Corpuscular HGB Conc 34.8 g/dL (31.6-35.5); Mean Corpuscular Hemoglobin 30.4 pg (28.0-33.3); Mean Platelet Volume 11.5 fL (9.4-12.4); Monocytes # 0.3 K/mcL (0.0-1.3); Neutrophils # 3.9 K/mcL (1.6-8.9); Platelet Count 111 K/mcL (140-400); Segmented Neutrophils % 75.3 %; White Blood Count 5.2 K/mcL (4.3-11.1)
[2021-07-25 10:16] LABS: INR 1.1; Prothrombin Time 12.6 Seconds (9.4-12.1)
[2021-07-25] MEDS ORDERED: Lisinopril-HCTZ 20-12.5mg TABLET PO ONE (11:19)
[2021-07-25] MEDS: Metoprolol XL (24 HR) Succ 50 MG TAB.ER.24H PO SCH (11:37)
[2021-07-25] MEDS ORDERED: Naloxone 0.4 MG/ML INJ IVP PRN (15:32)
[2021-07-25] MEDS ORDERED: Melatonin 3 MG TABLET PO PRN (15:32)
[2021-07-25] MEDS: *HR* HYDROcodone/Acet 5/325 mg TABLET PO SCH ×2 (16:39→21:00)
[2021-07-25] MEDS: Gabapentin 300 MG CAPSULE PO SCH ×2 (16:39→20:58)
[2021-07-25] MEDS: rOPINIRole 1 MG TABLET PO SCH (20:58)
[2021-07-25] MEDS ORDERED: *HR* Dextrose 50 % in Water (Syg) 50 ML SYRINGE IVP PRN (22:09)
[2021-07-25] MEDS ORDERED: D5% in Water 1,000 ML IVC PRN (22:09)
[2021-07-25] MEDS ORDERED: Dextrose Gel 15 GM/37.5 ML TUBE PO PRN ×2 (22:09)
[2021-07-25] MEDS: *HR* Heparin 5,000 UNIT/ML VIAL SQ SCH (22:47)
[2021-07-26] MEDS: *HR* Heparin 5,000 UNIT/ML VIAL SQ SCH ×2 (05:40→13:37)
[2021-07-26] MEDS: *HR* HYDROcodone/Acet 5/325 mg TABLET PO SCH ×2 (05:40→10:33)
[2021-07-26] MEDS: Insulin LISPRO 300 UNITS/3 ML VIAL SUBQ SCH ×2 (07:46→11:36)
[2021-07-26] MEDS ORDERED: 0.9 % Sodium Chloride 500 ML ONE (08:06)
[2021-07-26 08:08] LABS: BUN/Creatinine Ratio 18 (6-26); Blood Urea Nitrogen 19 mg/dL (6-20); Calcium 9.7 mg/dL (8.6-10.3); Carbon Dioxide 24 mEq/L (23-29); Chloride 104 mEq/L (98-107); Glucose 91 mg/dL (70-105); Osmolality,Calculated 286 (280-300); Potassium 4.1 mEq/L (3.5-5.1); Sodium 137 mEq/L (136-145); eGFR For African Americans > 60 (> 60); eGFR For Non-African Americans 53 (> 60)
[2021-07-26] MEDS ORDERED: *HR* FentaNYL (PF) 100 MCG/2 ML VIAL IVP ONE (08:11)
[2021-07-26] MEDS ORDERED: *HR* Midazolam HCl 2 MG/2 ML VIAL IVP ONE (08:11)
[2021-07-26] MEDS ORDERED: *HR* FentaNYL (PF) 100 MCG/2 ML VIAL ONE (08:19)
[2021-07-26] MEDS ORDERED: *HR* Midazolam HCl 2 MG/2 ML VIAL ONE (08:19)
[2021-07-26] MEDS ORDERED: Nicotine 14 MG PATCH.TD24 TD SCH (09:00)
[2021-07-26] MEDS: Gabapentin 300 MG CAPSULE PO SCH (09:34)
[2021-07-26] MEDS: Metoprolol XL (24 HR) Succ 50 MG TAB.ER.24H PO SCH (09:34)
[2021-07-26] MEDS: rOPINIRole 1 MG TABLET PO SCH (09:34)
[2021-07-26 10:37] VITALS: O2SAT 95
[2021-07-26 11:00] VITALS: TEMP 97.6
[2021-07-26 11:35] VITALS: BP 135/71; PULSE 68
[2021-07-26] MEDS ORDERED: Insulin LISPRO 300 UNITS/3 ML VIAL SUBQ SCH (21:00)
== END 2021-07-26 14:59 | disposition home or self-care (01) ==
LOC: 3BNU 09:34 → RAD 09:34 → 3BNU 14:23 → SUATTDRO 14:23
PROVIDERS: ADMIT Family Medicine; ATTEND Student in an Organized Health Care Education/Training Program

== ENCOUNTER 2022-04-12 10:50 | Inpatient (IN) ==
[2022-04-12] MEDS ORDERED: *HR* Heparin 5,000 UNIT/ML VIAL IVP PRN ×2 (10:54)
[2022-04-12] MEDS ORDERED: 0.9 % Sodium Chloride 500 ML IVC ONE (10:54)
[2022-04-12] MEDS ORDERED: *HR* Heparin 5,000 UNIT/ML VIAL IVP STA (10:54)
[2022-04-12] MEDS ORDERED: *HR* Ticagrelor 90 MG TABLET PO ONE (10:54)
[2022-04-12] MEDS ORDERED: *HR* Midazolam HCl 2 MG/2 ML VIAL ONE (11:01)
[2022-04-12] MEDS ORDERED: *HR* FentaNYL (PF) 100 MCG/2 ML VIAL ONE (11:01)
[2022-04-12] MEDS ORDERED: *HR* Heparin 10,000 UNIT/10 ML VIAL ONE ×2 (11:02→11:41)
[2022-04-12] MEDS ORDERED: Iopamidol - 370 200 ML INFUS..BTL ONE (11:02)
[2022-04-12] MEDS ORDERED: 0.9 % Sodium Chloride 2,000 ML ONE (11:02)
[2022-04-12] MEDS ORDERED: Heparin 1,000 UNITS/500 mL 500 ML ONE (11:02)
[2022-04-12] MEDS ORDERED: Nitroglycerin 1,000 MCG/5 ML VIAL IV ONE (11:02)
[2022-04-12] MEDS ORDERED: Morphine Sulfate 2 MG/ML SYRINGE ONE (11:17)
[2022-04-12] MEDS ORDERED: Morphine Sulfate 2 MG/ML SYRINGE IVP STA (11:18)
[2022-04-12 11:28] LABS: Basophils % 0.5 %; Eosinophils # 0.2 K/mcL (0.0-0.6); Eosinophils % 3.2 %; Hematocrit 40.4 % (35.3-44.9); Hemoglobin 13.8 g/dL (11.5-15.4); Immature Granulocytes % 0.6 % (0-4); Lymphocytes # 1.9 K/mcL (0.6-4.6); Lymphocytes % 27.8 %; Mean Corpuscular HGB Conc 34.2 g/dL (31.6-35.5); Mean Corpuscular Hemoglobin 29.2 pg (28.0-33.3); Mean Corpuscular Volume 85.6 fL (83.0-100.0); Mean Platelet Volume 11.7 fL (9.4-12.4); Monocytes # 0.4 K/mcL (0.0-1.3); Monocytes % 6.3 %; Neutrophils # 4.1 K/mcL (1.6-8.9); Platelet Count 160 K/mcL (140-400); Red Blood Count 4.72 M/mcL (3.82-4.97); Red Cell Distribution Width 14.8 % (11.5-14.5); Segmented Neutrophils % 61.6 %; White Blood Count 6.7 K/mcL (4.3-11.1)
[2022-04-12 11:35] LABS: INR 1.1; Prothrombin Time 11.7 Seconds (9.4-12.1)
[2022-04-12 11:38] LABS: Activated Partial Thrombo Time 28.2 Seconds (26.0-36.0)
[2022-04-12] MEDS ORDERED: *HR* Atropine Sulfate 1 MG/10 ML SYRINGE ONE (11:40)
[2022-04-12 11:51] LABS: BUN/Creatinine Ratio 18 (6-26); Blood Urea Nitrogen 20 mg/dL (6-20); Calcium 9.9 mg/dL (8.6-10.3); Carbon Dioxide 27 mEq/L (23-29); Chloride 98 mEq/L (98-107); Glucose 276 mg/dL (70-105); Magnesium 1.6 mg/dL (1.6-2.6); Osmolality,Calculated 290 (280-300); Potassium 4.1 mEq/L (3.5-5.1); Sodium 134 mEq/L (136-145); eGFR For African Americans > 60 (> 60); eGFR For Non-African Americans 52 (> 60)
[2022-04-12 12:00] LABS: Troponin I 1.92 ng/mL (< 0.04)
[2022-04-12] MEDS ORDERED: Perflutren Lipid Microsphere 1.3 ML in 0.9 % Sodium Chloride 8.7 ML IVP PRN (12:52)
[2022-04-12] MEDS: Heparin 25,000UNIT/250ML 1/2NS 25,000 UNIT/250 ML IV.SOLN IVC SCH (15:57)
[2022-04-12] MEDS: 0.9 % Sodium Chloride 1,000 ML IVC SCH (16:04)
[2022-04-12] MEDS ORDERED: D5% in Water 1,000 ML IVC PRN (16:38)
[2022-04-12] MEDS ORDERED: *HR* Dextrose 50 % in Water (Syg) 50 ML SYRINGE IVP PRN (16:38)
[2022-04-12] MEDS ORDERED: Dextrose Gel 15 GM/37.5 ML TUBE PO PRN ×2 (16:38)
[2022-04-12] MEDS: Famotidine 20 MG/2 ML VIAL IVP SCH (17:06)
[2022-04-12] MEDS: *HR* HYDROcodone/Acet 5/325 mg TABLET PO PRN ×2 (17:06→23:16)
[2022-04-12 17:52] LABS: Estimated Average Glucose 189 mg/dl; Hemoglobin A1C 8.2 %
[2022-04-12] MEDS: Insulin LISPRO 300 UNITS/3 ML VIAL SUBQ SCH ×2 (21:30→22:17)
[2022-04-12] MEDS: Gabapentin 400 MG CAPSULE PO SCH (22:12)
[2022-04-12] MEDS: rOPINIRole 1 MG TABLET PO SCH (22:13)
[2022-04-13] MEDS: 0.9 % Sodium Chloride 1,000 ML IVC SCH ×3 (01:31→20:09)
[2022-04-13] MEDS: Famotidine 20 MG/2 ML VIAL IVP SCH ×2 (06:43→17:40)
[2022-04-13 06:49] LABS: Basophils % 0.4 %; Eosinophils # 0.1 K/mcL (0.0-0.6); Eosinophils % 3.1 %; Hematocrit 34.2 % (35.3-44.9); Immature Granulocytes % 0.7 % (0-4); Lymphocytes # 1.2 K/mcL (0.6-4.6); Lymphocytes % 26.1 %; Mean Corpuscular HGB Conc 33.6 g/dL (31.6-35.5); Mean Corpuscular Volume 86.4 fL (83.0-100.0); Mean Platelet Volume 11.4 fL (9.4-12.4); Monocytes # 0.3 K/mcL (0.0-1.3); Monocytes % 6.3 %; Neutrophils # 2.9 K/mcL (1.6-8.9); Platelet Count 132 K/mcL (140-400); Red Blood Count 3.96 M/mcL (3.82-4.97); Red Cell Distribution Width 14.7 % (11.5-14.5); Segmented Neutrophils % 63.4 %; White Blood Count 4.6 K/mcL (4.3-11.1)
[2022-04-13 06:50] LABS: Hemoglobin 11.5 g/dL (11.5-15.4)
[2022-04-13 07:19] LABS: BUN/Creatinine Ratio 16 (6-26); Blood Urea Nitrogen 15 mg/dL (6-20); Calcium 8.8 mg/dL (8.6-10.3); Carbon Dioxide 27 mEq/L (23-29); Chloride 104 mEq/L (98-107); Glucose 191 mg/dL (70-105); Osmolality,Calculated 288 (280-300); Sodium 136 mEq/L (136-145); Troponin I 18.34 ng/mL (< 0.04); eGFR For African Americans > 60 (> 60); eGFR For Non-African Americans > 60 (> 60)
[2022-04-13] MEDS ORDERED: Albuterol 2.5 MG/3 ML NEBULIZER IH PRN (07:31)
[2022-04-13] MEDS: BuPROPion SR (12 HR) 100 MG TABLET PO SCH ×3 (10:14→20:09)
[2022-04-13] MEDS: Gabapentin 400 MG CAPSULE PO SCH ×3 (10:14→20:07)
[2022-04-13] MEDS: Cyanocobalamin (B-12) 1,000 MCG TABLET PO SCH ×2 (10:15→12:01)
[2022-04-13] MEDS: Aspirin Enteric Coated 81 MG Tablet PO SCH (10:16)
[2022-04-13] MEDS: rOPINIRole 1 MG TABLET PO SCH ×2 (10:16→23:31)
[2022-04-13] MEDS: Folic Acid 1 MG TABLET PO SCH ×2 (10:16→12:01)
[2022-04-13] MEDS: Cholecalciferol (D-3) 1,000 UNIT (25MCG) TABLET PO SCH ×2 (10:16→12:01)
[2022-04-13] MEDS: Metoprolol XL (24 HR) Succ 50 MG TAB.ER.24H PO SCH (10:16)
[2022-04-13] MEDS: Pantoprazole 40 MG VIAL IVP SCH (10:18)
[2022-04-13] MEDS: Patient Taking Own Medication 1 EACH PO SCH ×2 (10:19→20:09)
[2022-04-13] MEDS: Insulin LISPRO 300 UNITS/3 ML VIAL SUBQ SCH ×3 (12:23→20:09)
[2022-04-13] MEDS: *HR* HYDROcodone/Acet 5/325 mg TABLET PO PRN ×2 (14:19→20:07)
[2022-04-13] MEDS: Heparin 25,000UNIT/250ML 1/2NS 25,000 UNIT/250 ML IV.SOLN IVC SCH (17:40)
[2022-04-13] MEDS: Insulin DETEMIR 100 UNIT/ML X5UNITS SUBQ SCH (20:07)
[2022-04-14] MEDS: 0.9 % Sodium Chloride 1,000 ML IVC SCH ×2 (04:34→07:40)
[2022-04-14] MEDS: Famotidine 20 MG/2 ML VIAL IVP SCH ×2 (06:33→16:53)
[2022-04-14] MEDS: Pantoprazole 40 MG VIAL IVP SCH (07:37)
[2022-04-14] MEDS: *HR* HYDROcodone/Acet 5/325 mg TABLET PO PRN ×3 (07:37→20:45)
[2022-04-14] MEDS: Gabapentin 400 MG CAPSULE PO SCH ×3 (07:38→20:39)
[2022-04-14] MEDS: Metoprolol XL (24 HR) Succ 50 MG TAB.ER.24H PO SCH (07:38)
[2022-04-14] MEDS: Aspirin Enteric Coated 81 MG Tablet PO SCH (07:38)
[2022-04-14] MEDS: Patient Taking Own Medication 1 EACH PO SCH ×2 (07:38→20:40)
[2022-04-14] MEDS: Folic Acid 1 MG TABLET PO SCH (07:38)
[2022-04-14] MEDS: BuPROPion SR (12 HR) 100 MG TABLET PO SCH ×2 (07:39→20:39)
[2022-04-14] MEDS: Cyanocobalamin (B-12) 1,000 MCG TABLET PO SCH (07:39)
[2022-04-14] MEDS: Cholecalciferol (D-3) 1,000 UNIT (25MCG) TABLET PO SCH (07:39)
[2022-04-14] MEDS: rOPINIRole 1 MG TABLET PO SCH ×2 (07:39→20:39)
[2022-04-14] MEDS: Insulin DETEMIR 100 UNIT/ML X5UNITS SUBQ SCH ×2 (07:49→20:46)
[2022-04-14] MEDS: Insulin LISPRO 300 UNITS/3 ML VIAL SUBQ SCH ×4 (07:50→20:38)
[2022-04-14] MEDS: Heparin 25,000UNIT/250ML 1/2NS 25,000 UNIT/250 ML IV.SOLN IVC SCH ×2 (12:04→15:40)
[2022-04-14] MEDS: Ondansetron 4 MG/2 ML VIAL IVP PRN (23:37)
[2022-04-15 04:16] VITALS: O2SAT 97
[2022-04-15 05:06] LABS: Basophils % 0.6 %; Eosinophils # 0.2 K/mcL (0.0-0.6); Eosinophils % 3.7 %; Hemoglobin 11.8 g/dL (11.5-15.4); Immature Granulocytes % 0.6 % (0-4); Lymphocytes # 1.2 K/mcL (0.6-4.6); Lymphocytes % 25.3 %; Mean Corpuscular HGB Conc 33.7 g/dL (31.6-35.5); Mean Platelet Volume 11.5 fL (9.4-12.4); Monocytes # 0.3 K/mcL (0.0-1.3); Monocytes % 5.1 %; Neutrophils # 3.1 K/mcL (1.6-8.9); Platelet Count 151 K/mcL (140-400); Red Blood Count 4.07 M/mcL (3.82-4.97); Red Cell Distribution Width 14.8 % (11.5-14.5); Segmented Neutrophils % 64.7 %; White Blood Count 4.9 K/mcL (4.3-11.1)
[2022-04-15 05:25] LABS: BUN/Creatinine Ratio 16 (6-26); Blood Urea Nitrogen 15 mg/dL (6-20); Calcium 9.2 mg/dL (8.6-10.3); Carbon Dioxide 23 mEq/L (23-29); Chloride 105 mEq/L (98-107); Glucose 210 mg/dL (70-105); Osmolality,Calculated 289 (280-300); Potassium 4.2 mEq/L (3.5-5.1); Sodium 136 mEq/L (136-145); eGFR For African Americans > 60 (> 60); eGFR For Non-African Americans 60 (> 60)
[2022-04-15] MEDS: Famotidine 20 MG/2 ML VIAL IVP SCH (06:08)
[2022-04-15] MEDS: Pantoprazole 40 MG VIAL IVP SCH (08:47)
[2022-04-15] MEDS: Gabapentin 400 MG CAPSULE PO SCH (08:47)
[2022-04-15] MEDS: BuPROPion SR (12 HR) 100 MG TABLET PO SCH (08:48)
[2022-04-15] MEDS: rOPINIRole 1 MG TABLET PO SCH (08:48)
[2022-04-15] MEDS: 0.9 % Sodium Chloride 1,000 ML IVC SCH ×2 (08:48→10:39)
[2022-04-15] MEDS: Cyanocobalamin (B-12) 1,000 MCG TABLET PO SCH (08:48)
[2022-04-15] MEDS: Metoprolol XL (24 HR) Succ 50 MG TAB.ER.24H PO SCH (08:48)
[2022-04-15] MEDS: Folic Acid 1 MG TABLET PO SCH (08:48)
[2022-04-15] MEDS: Aspirin Enteric Coated 81 MG Tablet PO SCH (08:48)
[2022-04-15] MEDS: Cholecalciferol (D-3) 1,000 UNIT (25MCG) TABLET PO SCH (08:48)
[2022-04-15] MEDS: Patient Taking Own Medication 1 EACH PO SCH (08:48)
[2022-04-15] MEDS: Insulin DETEMIR 100 UNIT/ML X5UNITS SUBQ SCH (08:56)
[2022-04-15] MEDS: Insulin LISPRO 300 UNITS/3 ML VIAL SUBQ SCH ×2 (08:57→11:30)
[2022-04-15] MEDS: Ondansetron 4 MG/2 ML VIAL IVP PRN (10:51)
[2022-04-15 12:08] VITALS: PULSE 63; TEMP 98.8
[2022-04-15] MEDS ORDERED: Metoprolol XL (24 HR) Succ 25 MG TAB.ER.24H PO ONE (12:30)
[2022-04-15] MEDS ORDERED: E-Z-HD (BARIUM SULF) SUSPENSION PO ONE (12:43)
[2022-04-15] MEDS ORDERED: E-Z-PAQUE (BARIUM SULF) SUSP 1 BOTTLE PO ONE (12:43)
[2022-04-15] MEDS ORDERED: *HR* Rivaroxaban 10 MG TABLET PO SCH (13:00)
[2022-04-15 13:54] VITALS: BP 133/85
[2022-04-16] MEDS ORDERED: Metoprolol XL (24 HR) Succ 50 MG TAB.ER.24H PO SCH (09:00)
[2022-04-16] MEDS ORDERED: Metoprolol XL (24 HR) Succ 25 MG TAB.ER.24H PO ONE (12:30)
== END 2022-04-15 15:04 | disposition home or self-care (01) | DRG 247 ==
LOC: EMEROOARM 10:50 → ICNU 11:25 → SUATTDRO 12:57 → 2NNU 04-14 17:42
PROVIDERS: ADMIT Internal Medicine Cardiovascular Disease; ATTEND Pediatrics